=== PATIENT | male | born 1950 | race Hispanic/Latino ===

== ENCOUNTER 2017-10-25 12:02 | Observation (INO) | payer MEDICARE ==
[2017-10-25] MEDS ORDERED: MILK OF MAGNESIA PO PRN (12:37)
[2017-10-25] MEDS ORDERED: ZOFRAN IV PRN (12:37)
[2017-10-25] MEDS ORDERED: DULCOLAX PR PRN (12:37)
[2017-10-25] MEDS ORDERED: TYLENOL PO PRN (12:37)
--- NOTE | 2017-10-25 14:26 | History and Physical Report ---
History of Present Illness Date of examination: 10/25/17 Date of admission: 10/25/17 14:16 Chief complaint: Pain right lower extremity History of present illness: Patient is a 67-year-old man with recent onset of severe pain involving the right lower extremity. He was in his usual state of health until about a week or so ago when he began experiencing the abrupt onset of pain in the right lower extremity. He describes the foot is painful and numb from time to time. He was evaluated in an emergency room earlier this week. He was told to follow- up with vascular surgery. He was told at the time that he had "75%" circulation in his right lower extremity. Patient states that prior to this event he did have symptoms consistent with claudication involving the right lower extremity. Past History Past Medical History: CAD, diabetes, hypertension, hyperlipidemia Past Surgical History: Other (Three-vessel coronary stenting) Social history: , lives with family. denies: smoking, alcohol abuse Family history: diabetes Medications and Allergies Allergies Allergy/AdvReac Type Severity Reaction Status Date / Time No Known Allergies Allergy Verified 10/25/17 12:34 Active Meds: Active Medications Acetaminophen (Tylenol) 650 mg PO Q4H PRN PRN Reason: Pain MILD(1-3)/Fever >100.5/[place] Bisacodyl (Dulcolax) 10 mg [place] QDAY PRN PRN Reason: Constipation unrelieved by MOM Sodium Chloride (Nacl 0.9% 1000 Ml) 1,000 mls @ 42 mls/hr IV DIRECT JIN Magnesium Hydroxide (Milk Of Magnesia) 30 ml PO Q4H PRN PRN Reason: Constipation Ondansetron HCl (Zofran) 4 mg IV Q8H PRN PRN Reason: N/V unrelieved by Reglan Review of Systems All systems: negative - Constitutional no weight loss, no weight gain, no fever, no chills - Cardiovascular no chest pain, no shortness of breath, no leg edema Exam - General physical appearance Positive: well developed, well nourished, no distress, moderate pain - Eyes Positive: PERRL, normal occular movement - ENT Positive: normal pinna, normal nares, normal mucosa, no hearing loss, no congestion - Neck Positive: no masses, no bruits, trachea midline, no venous distension - Respiratory Positive: normal expansion, normal respiratory effort, clear to auscultation - Cardiovascular Rhythm: regular Heart Sounds: Present: S1 & S2. Absent: rub, click - Extremities Extremity abnormal: pulses diminished (Absent pedal pulses right foot) - Peripheral pulses posterial tibial Pulse Strength: 2+ (2+ on the left absent on the right) - Breasts Breasts: deferred - Abdomen Abdomen: Present: soft, bowel sounds normal. Absent: tender, distended - Genitourinary Male Genitourinary: deferred - Integumentary no rash, no growths, no abnormal pigmentation - Neurologic Neurologic: alert and oriented to time, place and person, motor strength and sensation are grossly intact - Musculoskeletal normal gait, normal posture Assessment and Plan - Patient Problems (1) Embolism and thrombosis of arteries of lower extremity Onset Date: ~10/16/17 Current Visit: Yes Status: Acute Plan to address problem: 1. Anticoagulation with heparin 2. Medical control of diabetes 3. Arterial intervention in the right lower extremity (2) Diabetes mellitus Current Visit: Yes Status: Chronic Qualifiers: Diabetes mellitus type: type 2 Diabetes mellitus complication status: with circulatory complication Diabetes mellitus complication detail: with peripheral angiopathy without gangrene Diabetes mellitus terminal worker insulin use : with intermediate use Qualified Code(s): E11.51 - Type 2 diabetes mellitus with diabetic peripheral angiopathy without gangrene; Z79.4 - group home (current ) use of insulin; Z79.4 - group home (current) use of insulin; Z79.4 - terminal computer operator (current) use of insulin; Z79.4 - terminal computer operator (current) use of insulin Plan to address problem: Consult hospitalist for management (3) Hypertension Current Visit: Yes Status: Chronic Qualifiers: Hypertension type: essential hypertension Qualified Code(s): I10 - Essential (primary) hypertension Plan to address problem: Consult hospitalist for management
[2017-10-25 15:02] LABS: Basophils % (Auto) 0.8 % (0.0-1.8); Hematocrit 45.3 % (35.5-45.6); Hemoglobin 15.6 gm/dl (11.8-15.2); Mean Corpuscular HGB Conc 34 % (32-34); Mean Corpuscular Hemoglobin 33 pg (28-32); Mean Corpuscular Volume 96 fl (84-94); Platelet Count 219 K/mm3 (140-440); Red Cell Distribution Width 13.2 % (13.2-15.2)
[2017-10-25 15:13] LABS: INR 1.01 (0.87-1.13)
[2017-10-25 15:14] LABS: Partial Thromboplastin Time 26.5 Sec. (24.2-36.6)
--- NOTE | 2017-10-25 15:18 | Event Note ---
67 year old male with new onset right calf and foot pain with short distance ambulation and decreased sensation to the right toes for 10 days with PVD of the right lower extremity. Nonpalpable right pedal pulses and palpable left pedal pulses. Discussed with patient plan for revascularization tomorrow. NPO after MN. Heparin drip.
[2017-10-25 15:28] LABS: Albumin 4.1 g/dL (3.9-5); Albumin/Globulin Ratio 1.4 %; Bilirubin,Total 0.5 mg/dL (0.1-1.2); Calcium 9.4 mg/dL (8.4-10.2); Chloride 93.7 mmol/L (98-107); Potassium 5.2 mmol/L (3.6-5.0)
[2017-10-25] MEDS ORDERED: NACL 0.9% 1000 ML 1,000 ML IV SCH (16:00)
--- NOTE | 2017-10-25 19:17 | History and Physical Report ---
History of Present Illness Date of admission: 10/25/17 14:16 Chief complaint: I need surgery History of present illness: 67 YO Male with CAD S/P Stent placement, HTN, DM, HLD, Metabolic Syndrome admitted for elective vascular procedure. consult placed by Dr. Saldana for medical management, and medication reconciliation. Pt seen and evaluated upon arrival. Pt denies fever, chills, CP, Palpitations, NVD, Syncope, leg swelling, calf pain, BRBPR, hemoptysis, productive cough, or recent ill contacts. Past History Past Medical History: CAD, diabetes, hypertension, hyperlipidemia Past Surgical History: Other (Three-vessel coronary stenting) Social history: , lives with family. denies: smoking, alcohol abuse Family history: diabetes Medications and Allergies Allergies Allergy/AdvReac Type Severity Reaction Status Date / Time No Known Allergies Allergy Verified 10/25/17 12:34 Home Medications Medication Instructions Recorded Confirmed Last Taken Type Amlodipine Besylate 10 mg PO DAILY 10/25/17 10/25/17 10/24/17 History Benazepril HCl [Lotensin] 40 mg PO DAILY 10/25/17 10/25/17 10/24/17 History Carvedilol [Coreg] 25 mg PO BID 10/25/17 10/25/17 10/24/17 History Clonidine HCl [Kapvay] 0.1 mg PO BID 10/25/17 10/25/17 10/25/17 History Clopidogrel Bisulfate [Plavix] 75 mg PO DAILY 10/25/17 10/25/17 10/24/17 History Cyclobenzaprine HCl [Flexeril 5 MG 5 mg PO PRN 10/25/17 10/25/17 10/24/17 History TAB] Gabapentin [Neurontin] 300 mg PO BID 10/25/17 10/25/17 10/25/17 History ISOSORBIDE MONOnitrate [Imdur ER] 60 mg PO QDAY 10/25/17 10/25/17 10/24/17 History Insulin Glargine,Hum.rec.anlog 30 unit SQ TID 10/25/17 10/25/17 10/24/17 History [Lantus] Levothyroxine Sodium 137 mcg PO QAM 10/25/17 10/25/17 10/24/17 History [Levothyroxine] Pravastatin 40 mg PO DAILY 10/25/17 10/25/17 10/24/17 History Spironolactone [Aldactone] 25 mg PO BID 10/25/17 10/25/17 10/24/17 History glipiZIDE [Glipizide] 5 mg PO BID 10/25/17 10/25/17 10/24/17 History Active Meds: Active Medications Acetaminophen (Tylenol) 650 mg PO Q4H PRN PRN Reason: Pain MILD(1-3)/Fever >100.5/[place] Bisacodyl (Dulcolax) 10 mg [place] QDAY PRN PRN Reason: Constipation unrelieved by MOM Sodium Chloride (Nacl 0.9% 1000 Ml) 1,000 mls @ 42 mls/hr IV DIRECT JIN Last Admin: 10/25/17 17:08 Dose: 42 mls/hr Heparin Sodium/Sodium Chloride (Heparin/ 0.45% Nacl-25,000 Unit/500 Ml) 25,000 unit in 500 mls @ 73.5 mls/hr IV TITR JIN; 15 UNITS/KG/HR PRN Reason: Protocol Magnesium Hydroxide (Milk Of Magnesia) 30 ml PO Q4H PRN PRN Reason: Constipation Ondansetron HCl (Zofran) 4 mg IV Q8H PRN PRN Reason: N/V unrelieved by Reglan Review of Systems Constitutional: no weight loss, no weight gain, no fever, no chills Ears, nose, mouth and throat: no ear pain, no ear discharge, no tinnitis, no decreased hearing, no nose pain Cardiovascular: no chest pain, no orthopnea, no palpitations, no rapid/ irregular heart beat, no edema Gastrointestinal: no nausea, no vomiting, no diarrhea, no constipation Genitourinary Male: no hematuria, no flank pain, no discharge, no urinary frequency, no urinary hesitancy Rectal: no pain, no incontinence, no bleeding Musculoskeletal: no neck stiffness, no neck pain, no shooting arm pain, no arm numbness/tingling, no low back pain Integumentary: no rash, no pruritis, no redness, no sores, no wounds Neurological: no head injury, no transient paralysis, no paralysis, no weakness , no parathesias Psychiatric: no anxiety, no memory loss, no change in sleep habits, no sleep disturbances, no insomnia Endocrine: no cold intolerance, no heat intolerance, no polyphagia, no excessive thirst Hematologic/Lymphatic: no easy bruising, no easy bleeding Allergic/Immunologic: no urticaria, no allergic rhinitis, no wheezing Exam - Constitutional Vitals: Temp Pulse Resp BP Pulse Ox 98.0 F 64 20 145/77 97 10/25/17 14:43 10/25/17 14:43 10/25/17 14:43 10/25/17 14:43 10/25/17 14:43 General appearance: Present: mild distress, obese - EENT Eyes: Present: PERRL ENT: hearing intact, clear oral mucosa - Neck Neck: Present: supple, normal ROM - Respiratory Respiratory effort: normal Respiratory: bilateral: CTA - Cardiovascular Heart Sounds: Present: S1 & S2. Absent: rub, click - Extremities Extremities: pulses symmetrical, No edema Peripheral Pulses: abnormal (diminished) - Abdominal General gastrointestinal: Present: soft, non-tender, non-distended, normal bowel sounds Male genitourinary: Present: normal - Integumentary Integumentary: Present: clear, warm, dry - Musculoskeletal Musculoskeletal: gait normal, strength equal bilaterally - Psychiatric Psychiatric: appropriate mood/affect, intact judgment & insight - Neurologic Neurologic: CNII-XII intact, moves all extremities Results - Labs CBC & Chem 7: 10/25/17 14:49 10/25/17 14:49 Labs: Abnormal lab results 10/25/17 10/25/17 10/25/17 Range/Units 14:49 14:49 17:26 Hgb 15.6 H (11.8-15.2) gm/dl MCV 96 H (84-94) fl MCH 33 H (28-32) pg Seg Neutrophils % 71.0 H (40.0-70.0) % Sodium 133 L (137-145) mmol/L Potassium 5.2 H (3.6-5.0) mmol/L Chloride 93.7 L (98-107) mmol/L BUN 21 H (9-20) mg/dL Glucose 371 H (75-100) mg/dL POC Glucose 291 H (70-105) Assessment and Plan - Patient Problems (1) Diabetes mellitus Current Visit: Yes Status: Chronic Qualifiers: Diabetes mellitus type: type 2 Diabetes mellitus complication status: with circulatory complication Diabetes mellitus complication detail: with peripheral angiopathy without gangrene Diabetes mellitus fci insulin use : with long term care pharmacist use Qualified Code(s): E11.51 - Type 2 diabetes mellitus with diabetic peripheral angiopathy without gangrene; Z79.4 - detention (current ) use of insulin; Z79.4 - detention (current) use of insulin; Z79.4 - detention (current) use of insulin; Z79.4 - detention (current) use of insulin Plan to address problem: ADA diet, Sliding scale insulin, Accu checks q 6hrs, (2) Hypertension Current Visit: Yes Status: Chronic Qualifiers: Hypertension type: essential hypertension Qualified Code(s): I10 - Essential (primary) hypertension Plan to address problem: Monitor bp q shift, resume home medication, IV hydralazine Prn for systolic above 165.
[2017-10-25] MEDS ORDERED: D50W (25GM) Syringe IV PRN (19:20)
[2017-10-25] MEDS ORDERED: HEPARIN/ 0.45% NACL-25,000 UNIT/500 ML 25,000 UNIT/500 ML BAG IV SCH (20:00)
[2017-10-25] MEDS ORDERED: NON-FORMULARY (Clonidine Hcl [Kapvay] 0.1 MG) PO SCH (22:00)
[2017-10-25] MEDS: COREG PO SCH (23:05)
[2017-10-25] MEDS: CATAPRES PO SCH (23:05)
[2017-10-25] MEDS: ALDACTONE PO SCH (23:05)
[2017-10-25] MEDS: PRAVACHOL PO SCH (23:06)
[2017-10-25] MEDS: NEURONTIN PO SCH (23:06)
[2017-10-25] MEDS: NOVOLOG SUB-Q SCH (23:09)
[2017-10-26] MEDS: SYNTHROID PO SCH ×2 (05:13→05:48)
[2017-10-26] MEDS: NOVOLOG SUB-Q SCH ×4 (05:49→23:35)
--- NOTE | 2017-10-26 08:08 | Progress Note ---
<ELÍASCOURT GODFREY - Last Filed: 10/28/17 00:35> Assessment and Plan Assessment and plan: Patient is a 67 years old Male with CAD S/P Stent placement, HTN, DM, HLD, Metabolic Syndrome admitted for elective vascular procedure. consult placed by Dr. Saldana for medical management, and medication reconciliation. Diabetes mellitus Accu-Chek before meals and at bedtime Sliding scale insulin/NovoLog ADA carbohydrate consistent diet Mild Hyponatrimia IV fluid that will correct it Closely monitor electrolytes Hypertension Continue home antihypertensive medications Closely monitor blood pressure CAD Continue on Aspirin and statins Hyperlipidemia Continue antilipid agents DVT/prophylaxis Heparin History Interval history: Patient denies having pain at present time. Labs and nursing notes reviewed. Hospitalist Physical - Constitutional Vitals: Temp Pulse Resp BP Pulse Ox 97.8 F 55 L 20 149/77 97 10/26/17 04:48 10/26/17 04:48 10/26/17 04:48 10/26/17 04:48 10/26/17 04:48 General appearance: Present: mild distress, obese - EENT Eyes: Present: PERRL ENT: hearing intact - Neck Neck: Present: supple - Respiratory Respiratory effort: normal Respiratory: bilateral: CTA - Cardiovascular Rhythm: regular Heart Sounds: Present: S1 & S2 - Abdominal General gastrointestinal: soft, non-tender - Integumentary Integumentary: Present: clear, warm, dry - Psychiatric Psychiatric: appropriate mood/affect - Neurologic Neurologic: CNII-XII intact - Allied Health Allied health notes reviewed: nursing Results - Labs CBC & Chem 7: 10/27/17 04:00 10/26/17 08:04 Labs: Laboratory Last Values WBC 8.0 K/mm3 (4.5-11.0) 10/25/17 14:49 RBC 4.70 M/mm3 (3.65-5.03) 10/25/17 14:49 Hgb 15.6 gm/dl (11.8-15.2) H 10/25/17 14:49 Hct 45.3 % (35.5-45.6) 10/25/17 14:49 MCV 96 fl (84-94) H 10/25/17 14:49 MCH 33 pg (28-32) H 10/25/17 14:49 MCHC 34 % (32-34) 10/25/17 14:49 RDW 13.2 % (13.2-15.2) 10/25/17 14:49 Plt Count 219 K/mm3 (140-440) 10/25/17 14:49 Lymph % (Auto) 18.0 % (13.4-35.0) 10/25/17 14:49 [place] % (Auto) 7.2 % (0.0-7.3) 10/25/17 14:49 Eos % (Auto) 3.0 % (0.0-4.3) 10/25/17 14:49 Baso % (Auto) 0.8 % (0.0-1.8) 10/25/17 14:49 Lymph # 1.4 K/mm3 (1.2-5.4) 10/25/17 14:49 [place] # 0.6 K/mm3 (0.0-0.8) 10/25/17 14:49 Eos # 0.2 K/mm3 (0.0-0.4) 10/25/17 14:49 Baso # 0.1 K/mm3 (0.0-0.1) 10/25/17 14:49 Seg Neutrophils % 71.0 % (40.0-70.0) H 10/25/17 14:49 Seg Neutrophils # 5.7 K/mm3 (1.8-7.7) 10/25/17 14:49 PT 13.8 Sec. (12.2-14.9) 10/25/17 14:49 INR 1.01 (0.87-1.13) 10/25/17 14:49 APTT 26.5 Sec. (24.2-36.6) 10/25/17 14:49 Heparin Anti-Xa Level 0.21 U.I./ml (0.3-0.7) L 10/26/17 04:42 Sodium 133 mmol/L (137-145) L 10/25/17 14:49 Potassium 5.2 mmol/L (3.6-5.0) H 10/25/17 14:49 Chloride 93.7 mmol/L (98-107) L 10/25/17 14:49 Carbon Dioxide 27 mmol/L (22-30) 10/25/17 14:49 Anion Gap 18 mmol/L 10/25/17 14:49 BUN 21 mg/dL (9-20) H 10/25/17 14:49 Creatinine 1.3 mg/dL (0.8-1.5) 10/25/17 14:49 Estimated GFR 55 ml/min 10/25/17 14:49 BUN/Creatinine Ratio 16 % 10/25/17 14:49 Glucose 371 mg/dL (75-100) H 10/25/17 14:49 POC Glucose 245 (70-105) H 10/26/17 06:20 Calcium 9.4 mg/dL (8.4-10.2) 10/25/17 14:49 Total Bilirubin 0.50 mg/dL (0.1-1.2) 10/25/17 14:49 AST 14 units/L (5-40) 10/25/17 14:49 ALT 18 units/L (7-56) 10/25/17 14:49 Alkaline Phosphatase 55 units/L (35-129) 10/25/17 14:49 Total Protein 7.0 g/dL (6.3-8.2) 10/25/17 14:49 Albumin 4.1 g/dL (3.9-5) 10/25/17 14:49 Albumin/Globulin Ratio 1.4 % 10/25/17 14:49 <ANABEL BRIDGES R - Last Filed: 10/28/17 09:40> Assessment and Plan Assessment and plan: I saw and evaluated the patient on 10/26/17. I agree with the findings and the plan of care as documented in the Nurse Practitioner's~note. Hospitalist Physical - Constitutional Vitals: Temp Pulse Resp BP Pulse Ox 97.5 F L 60 20 125/75 96 10/27/17 09:23 10/27/17 09:29 10/27/17 09:23 10/27/17 09:29 10/27/17 09:23 Results - Labs CBC & Chem 7: 10/27/17 04:00 10/26/17 08:04 Labs: Laboratory Last Values WBC 8.0 K/mm3 (4.5-11.0) 10/25/17 14:49 RBC 4.70 M/mm3 (3.65-5.03) 10/25/17 14:49 Hgb 15.9 gm/dl (11.8-15.2) H 10/27/17 04:00 Hct 45.5 % (35.5-45.6) 10/27/17 04:00 MCV 96 fl (84-94) H 10/25/17 14:49 MCH 33 pg (28-32) H 10/25/17 14:49 MCHC 34 % (32-34) 10/25/17 14:49 RDW 13.2 % (13.2-15.2) 10/25/17 14:49 Plt Count 207 K/mm3 (140-440) 10/27/17 04:00 Lymph % (Auto) 18.0 % (13.4-35.0) 10/25/17 14:49 [place] % (Auto) 7.2 % (0.0-7.3) 10/25/17 14:49 Eos % (Auto) 3.0 % (0.0-4.3) 10/25/17 14:49 Baso % (Auto) 0.8 % (0.0-1.8) 10/25/17 14:49 Lymph # 1.4 K/mm3 (1.2-5.4) 10/25/17 14:49 [place] # 0.6 K/mm3 (0.0-0.8) 10/25/17 14:49 Eos # 0.2 K/mm3 (0.0-0.4) 10/25/17 14:49 Baso # 0.1 K/mm3 (0.0-0.1) 10/25/17 14:49 Seg Neutrophils % 71.0 % (40.0-70.0) H 10/25/17 14:49 Seg Neutrophils # 5.7 K/mm3 (1.8-7.7) 10/25/17 14:49 PT 13.8 Sec. (12.2-14.9) 10/25/17 14:49 INR 1.01 (0.87-1.13) 10/25/17 14:49 APTT 26.5 Sec. (24.2-36.6) 10/25/17 14:49 Activated Clotting Time 158 (74-137) H 10/26/17 16:19 Heparin Anti-Xa Level < 0.10 U.I./ml (0.3-0.7) L 10/27/17 10:25 Sodium 132 mmol/L (137-145) L 10/26/17 08:04 Potassium 4.3 mmol/L (3.6-5.0) 10/26/17 08:04 Chloride 92.6 mmol/L (98-107) L 10/26/17 08:04 Carbon Dioxide 25 mmol/L (22-30) 10/26/17 08:04 Anion Gap 19 mmol/L 10/26/17 08:04 BUN 16 mg/dL (9-20) 10/26/17 08:04 Creatinine 1.1 mg/dL (0.8-1.5) 10/26/17 08:04 Estimated GFR > 60 ml/min 10/26/17 08:04 BUN/Creatinine Ratio 15 % 10/26/17 08:04 Glucose 260 mg/dL (75-100) H 10/26/17 08:04 POC Glucose 287 (70-105) H 10/27/17 11:47 Calcium 9.2 mg/dL (8.4-10.2) 10/26/17 08:04 Total Bilirubin 0.50 mg/dL (0.1-1.2) 10/25/17 14:49 AST 14 units/L (5-40) 10/25/17 14:49 ALT 18 units/L (7-56) 10/25/17 14:49 Alkaline Phosphatase 55 units/L (35-129) 10/25/17 14:49 Total Protein 7.0 g/dL (6.3-8.2) 10/25/17 14:49 Albumin 4.1 g/dL (3.9-5) 10/25/17 14:49 Albumin/Globulin Ratio 1.4 % 10/25/17 14:49
[2017-10-26 09:04] LABS: Anion Gap 19 mmol/L; BUN/Creatinine Ratio 15; Blood Urea Nitrogen 16 mg/dL (9-20); Calcium 9.2 mg/dL (8.4-10.2); Carbon Dioxide 25 mmol/L (22-30); Chloride 92.6 mmol/L (98-107); Glucose 260 mg/dL (75-100); Potassium 4.3 mmol/L (3.6-5.0); Sodium 132 mmol/L (137-145)
--- NOTE | 2017-10-26 09:56 | Consultation ---
History of Present Illness Consult date: 10/26/17 Consult reason: known to you History of present illness: This is a 67yr old male a known history of coronary artery disease but has been lost to outpatient cardiac follow up. He also has a history of Hypertension and Diabetes managed by his primary care physician. Patient reports complaints of right lower extremity pain with decreased sensation x 1wk. Patient was seen as an outpatient by [facility] and was admitted for further evaluation. Patient denies chest pain, shortness of breath and lower extremity edema. He denies palpitations. Past History Past Medical History: CAD, diabetes, hypertension, hyperlipidemia Past Surgical History: Other (Three-vessel coronary stenting) Social history: , lives with family. denies: smoking, alcohol abuse Family history: diabetes Medications and Allergies Allergies Allergy/AdvReac Type Severity Reaction Status Date / Time No Known Allergies Allergy Verified 10/25/17 12:34 Home Medications Medication Instructions Recorded Confirmed Last Taken Type Amlodipine Besylate 10 mg PO DAILY 10/25/17 10/25/17 10/24/17 History Benazepril HCl [Lotensin] 40 mg PO DAILY 10/25/17 10/25/17 10/24/17 History Carvedilol [Coreg] 25 mg PO BID 10/25/17 10/25/17 10/24/17 History Clonidine HCl [Kapvay] 0.1 mg PO BID 10/25/17 10/25/17 10/25/17 History Clopidogrel Bisulfate [Plavix] 75 mg PO DAILY 10/25/17 10/25/17 10/24/17 History Cyclobenzaprine HCl [Flexeril 5 MG 5 mg PO PRN 10/25/17 10/25/17 10/24/17 History TAB] Gabapentin [Neurontin] 300 mg PO BID 10/25/17 10/25/17 10/25/17 History ISOSORBIDE MONOnitrate [Imdur ER] 60 mg PO QDAY 10/25/17 10/25/17 10/24/17 History Insulin Glargine,Hum.rec.anlog 30 unit SQ TID 10/25/17 10/25/17 10/24/17 History [Lantus] Levothyroxine Sodium 137 mcg PO QAM 10/25/17 10/25/17 10/24/17 History [Levothyroxine] Pravastatin 40 mg PO DAILY 10/25/17 10/25/17 10/24/17 History Spironolactone [Aldactone] 25 mg PO BID 10/25/17 10/25/17 10/24/17 History glipiZIDE [Glipizide] 5 mg PO BID 10/25/17 10/25/17 10/24/17 History Active Meds: Active Medications Acetaminophen (Tylenol) 650 mg PO Q4H PRN PRN Reason: Pain MILD(1-3)/Fever >100.5/[place] Last Admin: 10/25/17 23:06 Dose: 650 mg Amlodipine Besylate (Norvasc) 10 mg PO DAILY [facility] Bisacodyl (Dulcolax) 10 mg [place] QDAY PRN PRN Reason: Constipation unrelieved by MOM Carvedilol (Coreg) 25 mg PO BID [facility] Last Admin: 10/25/17 23:05 Dose: 25 mg Clonidine HCl (Catapres) 0.1 mg PO BID [facility] Last Admin: 10/25/17 23:05 Dose: 0.1 mg Clopidogrel Bisulfate (Plavix) 75 mg PO DAILY [facility] Dextrose (D50w (25gm) Syringe) 50 ml IV PRN PRN PRN Reason: Hypoglycemia Gabapentin (Neurontin) 300 mg PO BID [facility] Last Admin: 10/25/17 23:06 Dose: 300 mg Sodium Chloride (Nacl 0.9% 1000 Ml) 1,000 mls @ 50 mls/hr IV DIRECT JIN Last Admin: 10/25/17 17:08 Dose: 42 mls/hr Heparin Sodium/Sodium Chloride (Heparin/ 0.45% Nacl-25,000 Unit/500 Ml) 25,000 unit in 500 mls @ 30 mls/hr IV TITR JIN; 1,500 UNITS/HR PRN Reason: Protocol Last Titration: 10/26/17 06:28 Dose: 1,600 units/hr, 32 mls/hr Insulin Aspart (Novolog) 0 units SUB-Q Q6HR JIN PRN Reason: Protocol Last Admin: 10/26/17 05:49 Dose: Not Given Isosorbide Mononitrate (Imdur) 60 mg PO QDAY [facility] Levothyroxine Sodium (Synthroid) 112 mcg PO DAILY@0600 [facility] Last Admin: 10/26/17 05:13 Dose: Not Given Levothyroxine Sodium (Synthroid) 25 mcg PO DAILY@0600 [facility] Last Admin: 10/26/17 05:48 Dose: Not Given Lisinopril (Zestril) 40 mg PO QDAY [facility] Magnesium Hydroxide (Milk Of Magnesia) 30 ml PO Q4H PRN PRN Reason: Constipation Ondansetron HCl (Zofran) 4 mg IV Q8H PRN PRN Reason: N/V unrelieved by Reglan Pravastatin Sodium (Pravachol) 40 mg PO QHS [facility] Last Admin: 10/25/17 23:06 Dose: 40 mg Spironolactone (Aldactone) 25 mg PO BID [facility] Last Admin: 10/25/17 23:05 Dose: 25 mg Physical Examination Vital Signs Temp Pulse Resp BP Pulse Ox 98.0 F 64 20 145/77 97 10/25/17 14:43 10/25/17 14:43 10/25/17 14:43 10/25/17 14:43 10/25/17 14:43 General appearance: no acute distress HEENT: Positive: PERRL Cardiac: Positive: Reg Rate and Rhythm Lungs: Positive: Decreased Breath Sounds Neuro: Positive: Grossly Intact Results 10/25/17 14:49 10/26/17 08:04 Cardiac Enzymes 10/25/17 Range/Units 14:49 AST 14 (5-40) units/L Coagulation 10/25/17 Range/Units 14:49 PT 13.8 (12.2-14.9) Sec. INR 1.01 (0.87-1.13) APTT 26.5 (24.2-36.6) Sec. CBC 10/25/17 Range/Units 14:49 WBC 8.0 (4.5-11.0) K/mm3 RBC 4.70 (3.65-5.03) M/mm3 Hgb 15.6 H (11.8-15.2) gm/dl Hct 45.3 (35.5-45.6) % Plt Count 219 (140-440) K/mm3 Lymph # 1.4 (1.2-5.4) K/mm3 [place] # 0.6 (0.0-0.8) K/mm3 Eos # 0.2 (0.0-0.4) K/mm3 Baso # 0.1 (0.0-0.1) K/mm3 Comprehensive Metabolic Panel 10/25/17 10/26/17 Range/Units 14:49 08:04 Sodium 133 L 132 L (137-145) mmol/L Potassium 5.2 H 4.3 (3.6-5.0) mmol/L Chloride 93.7 L 92.6 L (98-107) mmol/L Carbon Dioxide 27 25 (22-30) mmol/L BUN 21 H 16 (9-20) mg/dL Creatinine 1.3 1.1 (0.8-1.5) mg/dL Glucose 371 H 260 H (75-100) mg/dL Calcium 9.4 9.2 (8.4-10.2) mg/dL AST 14 (5-40) units/L ALT 18 (7-56) units/L Alkaline Phosphatase 55 (35-129) units/L Total Protein 7.0 (6.3-8.2) g/dL Albumin 4.1 (3.9-5) g/dL Assessment and Plan RLE pain/decrease sensation Hypertension Diabetes Hx of CAD Obtain 12 lead ECG for review.
[2017-10-26] MEDS: ALDACTONE PO SCH ×2 (10:00→22:00)
[2017-10-26] MEDS: NEURONTIN PO SCH ×2 (10:00→22:00)
[2017-10-26] MEDS ORDERED: NON-FORMULARY (Levothyroxine Sodium [Levothyroxine] 137 MCG) PO SCH (10:00)
[2017-10-26] MEDS: IMDUR PO SCH (10:00)
[2017-10-26] MEDS ORDERED: NON-FORMULARY (Benazepril Hcl [Lotensin] 40 MG) PO SCH (10:00)
[2017-10-26] MEDS: CATAPRES PO SCH ×2 (10:00→22:00)
[2017-10-26] MEDS: ZESTRIL PO SCH (10:00)
[2017-10-26] MEDS ORDERED: NON-FORMULARY (Amlodipine Besylate 10 MG) PO SCH (10:00)
[2017-10-26] MEDS ORDERED: NON-FORMULARY (Pravastatin 40 MG) PO SCH (10:00)
[2017-10-26] MEDS: COREG PO SCH ×2 (10:00→22:01)
[2017-10-26] MEDS ORDERED: NACL 0.9% 500 ML 500 ML IV SCH (13:00)
[2017-10-26] MEDS ORDERED: HEPARIN/NS 5000 UNIT/500ML(CATH LAB) 1,000 ML IR ONE (13:10)
[2017-10-26] MEDS ORDERED: HEPARIN 10,000 UNITS/10 ML ONE (13:10)
[2017-10-26] MEDS ORDERED: XYLOCAINE 2% INFILTRATI ONE (13:11)
[2017-10-26] MEDS: VERSED ONE ×2 (13:30→13:40)
[2017-10-26] MEDS: SUBLIMAZE ONE ×4 (13:30→14:30)
[2017-10-26] MEDS ORDERED: VERSED ONE (13:59)
[2017-10-26] MEDS ORDERED: SUBLIMAZE ONE (14:51)
--- NOTE | 2017-10-26 15:11 | Post Operative Note ---
Date of procedure: 10/26/17 Pre-op diagnosis: Threatened right lower extremity Post-op diagnosis: same Findings: ACT 197 - will leave sheath in until ACT less than 170. Will need to be supine for 8 hrs. Procedure: 1. Ultrasound guided access of the left common femoral artery 2. Angiography of the left lower extremity 3. Selection of the abdominal aorta with aortography 4. Selection of the right external iliac artery with angiography of the right lower extremity 5. Selection of the right popliteal artery with angiography 6. Fluoroscopic guided placement of a 6 mm spider wire in the left below knee popliteal artery 7. Angioplasty of the right distal superficial femoral artery with a 2.5 mm angioplasty balloon 8. Atherectomy of the right distal superficial femoral artery with a LX [place] One 9. Angioplasty of the right distal superficial femoral artery with a 5 mm angioplasty balloon 10. Angioplasty of the right distal superficial femoral artery with a 6 mm x 100 mm LUTONIX drug coated balloon (x 2) 11. Stenting of the right distal superficial femoral artery with 7 mm x 60 mm TIGRIS Anesthesia: local (w/ conscious sedation) Surgeon: VLADIMIR NOBLE Estimated blood loss: minimal Condition: stable Disposition: floor
--- NOTE | 2017-10-26 15:13 | Operative Report ---
Operative Report Operative Report: EXAM: 1. Ultrasound guided access of the left common femoral artery 2. Angiography of the left lower extremity 3. Selection of the abdominal aorta with aortography 4. Selection of the right external iliac artery with angiography of the right lower extremity 5. Selection of the right popliteal artery with angiography 6. Fluoroscopic guided placement of a 6 mm spider wire in the left below knee popliteal artery 7. Angioplasty of the right distal superficial femoral artery with a 2.5 mm angioplasty balloon 8. Atherectomy of the right distal superficial femoral artery with a LX Hawk One 9. Angioplasty of the right distal superficial femoral artery with a 5 mm angioplasty balloon 10. Angioplasty of the right distal superficial femoral artery with a 6 mm x 100 mm LUTONIX drug coated balloon (x 2) 11. Stenting of the right distal superficial femoral artery with 7 mm x 60 mm TIGRIS DATE: 10/26/17 ARMAMENT INSTALLER: VLADIMIR NOBLE MD INDICATION: Threatened right lower extremity with new onset rest pain and numbness. MEDICATIONS: Please see nursing report for full details. DEVICES: 6 mm spider wire 2.5 mm angioplasty balloon 5 mm angioplasty balloon LX Hawk One 6 mm x 100 mm LUTONIX DCB (x 2 ; PASS THROUGH CODE REQUIRED) 7 mm x 60 mm Tigris stent CONTRAST: Please see [facility] [employer] report above PROCEDURE: The risks, benefits, and alternatives were discussed with the patient; written informed consent was obtained. Patient was prepped and draped in a sterile fashion. The groins were prepped and draped in a sterile fashion. The patient was obese and had a large amount of soft tissue above the groin. Under direct ultrasound guidance, left common femoral artery was accessed with a 21-gauge micropuncture needle. The needle was hubbed. 0.018 inch wire was passed into the artery. Needle was exchanged for the inner portion of the transitional dilator. Digital subtraction angiography was performed confirming appropriate puncture, above the bifurcation of below the inferior epigastric artery. V18 wire was passed through the inner transitional dilator and the transitional dilator was reassembled advanced over the wire. Wire was removed and exchanged for a Glidewire advantage. Sheath was exchanged for a 6 Cuban sheath. Digital subtraction angiography was performed demonstrating an appropriate puncture, above the bifurcation of below the inferior epigastric artery. The left superficial femoral artery had some mild narrowing at the distal portion of the vessel. The mid and proximal portion of the vessel was patent. The left profunda femoral artery was patent. The left superficial femoral artery had some mild disease within the proximal portion of the vessel. Left external iliac artery was patent. Catheter is advanced over the wire into the abdominal aorta. Digital subtraction angiography was performed demonstrating patency of the infrarenal abdominal aorta, bilateral common iliac arteries, lateral internal iliac arteries, and bilateral external iliac arteries. Catheter was used to select the right external iliac artery and digital subtraction angiography demonstrated patency of the right common femoral artery , profunda femoral artery, and proximal superficial femoral artery. Catheter was exchanged for an angled catheter and used to select the right superficial femoral artery. Digital subtraction angiography demonstrating patency of the proximal and mid superficial femoral artery. The distal superficial femoral artery was occluded with distal reconstitution at the superficial femoral artery immediately above the popliteal artery. The popliteal artery was patent. The anterior tibial artery had multifocal 90% narrowings throughout the mid, proximal, and distal portions of the vessel. The posterior tibial artery was occluded throughout its course. The tibioperoneal trunk had two 90% tandem lesions. The peroneal artery was patent throughout the course and provided runoff into the foot through the anterior and posterior communicating arteries. After evaluating the imaging, I determined the patient required intervention. The patient was heparinized. Sheath was exchanged for a 7 Cuban 65 cm pedicle destination positioned in the right superficial femoral artery. Using a wire and catheter, the right superficial femoral artery occlusion was crossed. Digital subtraction angiography confirmed intraluminal positioning. Spider wire was deployed in the distal popliteal artery. 2.5 mm angioplasty balloon used for angioplasty of the distal superficial femoral artery. Hawk one atherectomy was performed of the distal superficial femoral artery with multiple passes performed. 5 mm angioplasty balloon is used to predilate the distal superficial femoral artery lesion. 6 mm drug coated balloon's were used to perform angioplasty of the distal superficial femoral artery. Digital subtraction angiography demonstrated resolution of most of the narrowing, but a residual 70% narrowing in the distal most portion of the superficial femoral artery lesion. 7 mm x 60 mm Tigris stent was deployed across the residual lesion. This was post dilated with a 6 mm angioplasty balloon. Digital subtraction angiography demonstrated resolution of the narrowing. There is now no residual narrowing within the superficial femoral artery lesion. There is prompt flow into the popliteal and infrapopliteal vasculature. No evidence of embolization in the distal popliteal vasculature. Minimal debris in the spider wire. Spider wire was then removed. Digital subtraction angiography demonstrated no embolization. Wire, catheter, and sheath were retracted to the left external iliac artery. Sheath was exchanged for a 7 Cuban standard 10 cm sheath. ACT was drawn which demonstrated the ACT was 197. Sheath was sutured in place and obturator was placed in the sheath prevent occlusion of the sheath. ACT was redrawn and was found to be less than 160. Sheath was removed and pressure was held until hemostasis was achieved. Patient tolerated the procedure well. No immediate postprocedural complication. FINDINGS: See procedure note above. IMPRESSION: Successful atherectomy, angioplasty, and stenting of the right distal superficial femoral artery occlusion.
[2017-10-26] MEDS ORDERED: BABY ASPIRIN ONE (15:22)
[2017-10-26] MEDS ORDERED: ALUM-MAG HYDROX-SIMETH 200-200-20MG/5ML ONE (15:23)
[2017-10-26] MEDS: PLAVIX ONE (15:30)
[2017-10-26] MEDS ORDERED: PERCOCET 5/325 ONE ×2 (15:31→15:37)
[2017-10-26] MEDS ORDERED: PERCOCET 5/325 PO PRN (15:39)
[2017-10-26] MEDS ORDERED: DILAUDID IV PRN ×2 (15:40→16:22)
[2017-10-26] MEDS ORDERED: DILAUDID ONE (16:09)
[2017-10-26] MEDS ORDERED: ZOFRAN ONE (16:21)
[2017-10-26] MEDS ORDERED: APRESOLINE ONE (16:29)
[2017-10-26] MEDS: PLAVIX PO SCH (17:00)
[2017-10-26] MEDS ORDERED: APRESOLINE IV ONE (17:00)
[2017-10-26] MEDS ORDERED: NOVOLOG SUB-Q ONE (17:29)
[2017-10-26] MEDS: NORVASC PO SCH (17:46)
[2017-10-26] MEDS: PRAVACHOL PO SCH (22:01)
[2017-10-27 04:22] LABS: Hematocrit 45.5 % (35.5-45.6); Hemoglobin 15.9 gm/dl (11.8-15.2)
[2017-10-27] MEDS: SYNTHROID PO SCH ×2 (06:12)
[2017-10-27] MEDS: NOVOLOG SUB-Q SCH ×2 (08:28→11:53)
--- NOTE | 2017-10-27 08:55 | Progress Note ---
Assessment and Plan RLE pain/decrease sensation s/p right SFA atherectomy, angioplasty and stenting Hypertension Diabetes Hx of CAD Recommendations: Cardiac cruz stable No new recommendations Subjective Date of service: 10/27/17 Principal diagnosis: Perioperative cardiac management Interval history: Patient is doing well He denies chest pain or shortness of breath Objective Vital Signs Temp Pulse Resp BP BP Pulse Ox 10/27/17 07:59 98 10/27/17 07:27 98.6 F 63 18 120/62 94 10/27/17 04:02 97.7 F 77 18 145/80 95 10/26/17 22:35 98.9 F 81 18 150/83 97 10/26/17 21:39 98.2 F 90 18 153/83 96 10/26/17 20:00 98.7 F 88 20 149/81 97 10/26/17 19:05 98.4 F 73 18 163/82 96 10/26/17 18:02 97.7 F 72 18 150/69 98 10/26/17 17:46 73 163/83 10/26/17 17:43 70 18 163/83 97 10/26/17 17:20 73 20 166/79 97 10/26/17 17:08 66 18 139/91 97 10/26/17 16:54 68 16 170/82 98 10/26/17 16:48 70 18 161/87 96 10/26/17 16:44 18 10/26/17 16:43 66 16 160/77 97 10/26/17 16:40 67 160/77 10/26/17 16:38 68 15 169/85 95 10/26/17 16:34 66 14 205/98 95 10/26/17 16:29 69 14 194/94 96 10/26/17 16:15 61 13 184/80 96 10/26/17 16:14 18 10/26/17 16:00 62 14 180/89 95 10/26/17 15:45 61 12 182/94 97 10/26/17 15:30 97.7 F 61 16 179/86 95 - Physical Examination HEENT: Positive: PERRL Neck: Positive: neck supple Cardiac: Positive: Reg Rate and Rhythm Lungs: Positive: Normal Exam Neuro: Positive: Grossly Intact - Labs and Meds CBC 10/27/17 Range/Units 04:00 Hgb 15.9 H (11.8-15.2) gm/dl Hct 45.5 (35.5-45.6) % Plt Count 207 (140-440) K/mm3 Comprehensive Metabolic Panel 10/26/17 Range/Units 08:04 Sodium 132 L (137-145) mmol/L Potassium 4.3 (3.6-5.0) mmol/L Chloride 92.6 L (98-107) mmol/L Carbon Dioxide 25 (22-30) mmol/L BUN 16 (9-20) mg/dL Creatinine 1.1 (0.8-1.5) mg/dL Glucose 260 H (75-100) mg/dL Calcium 9.2 (8.4-10.2) mg/dL
[2017-10-27 09:26] VITALS: BP 125/75
[2017-10-27] MEDS: PLAVIX PO SCH (09:27)
[2017-10-27] MEDS: IMDUR PO SCH (09:28)
[2017-10-27] MEDS: CATAPRES PO SCH (09:28)
[2017-10-27] MEDS: NEURONTIN PO SCH (09:28)
[2017-10-27] MEDS: COREG PO SCH (09:28)
[2017-10-27] MEDS: ZESTRIL PO SCH (09:29)
[2017-10-27] MEDS: ALDACTONE PO SCH (09:29)
[2017-10-27] MEDS: NORVASC PO SCH (09:29)
--- NOTE | 2017-10-27 09:47 | Discharge Summary ---
Providers - Providers Date of Admission: 10/25/17 14:16 Date of discharge: 10/27/17 Attending physician: YARI JAFFE 10/25/17 12:41 Consult to Dietitian/Nutrition [CONS] Routine Physician Instructions: Reason For Exam: Reason for Consult: Diet education 10/25/17 15:26 Consult to Physician [CONS] Routine Consulting Provider: ALEXANDRE GONZALEZ Reason For Exam: medical management - dm management Place consult to:: Notified:: 10/25/17 15:27 Consult to Physician [CONS] Routine Consulting Provider: CHAD BECERRIL Reason For Exam: [facility]ab[facility] heart - patient known to group Place consult to:: Notified:: Phone number called:: [phone] Was contact made?: Yes If yes, spoke with:: ANAYELI Time called:: 16:05 Comment:: JAY Primary care physician: BILLIE LEON Hospitalization Reason for admission: PAD Condition: Good Procedures: Operative Report: EXAM: 1. Ultrasound guided access of the left common femoral artery 2. Angiography of the left lower extremity 3. Selection of the abdominal aorta with aortography 4. Selection of the right external iliac artery with angiography of the right lower extremity 5. Selection of the right popliteal artery with angiography 6. Fluoroscopic guided placement of a 6 mm spider wire in the left below knee popliteal artery 7. Angioplasty of the right distal superficial femoral artery with a 2.5 mm angioplasty balloon 8. Atherectomy of the right distal superficial femoral artery with a LX Hawk One 9. Angioplasty of the right distal superficial femoral artery with a 5 mm angioplasty balloon 10. Angioplasty of the right distal superficial femoral artery with a 6 mm x 100 mm LUTONIX drug coated balloon (x 2) 11. Stenting of the right distal superficial femoral artery with 7 mm x 60 mm TIGRIS DATE: 10/26/17 SALES STOCK ASSOCIATE: VLADIMIR NOBLE MD INDICATION: Threatened right lower extremity with new onset rest pain and numbness. MEDICATIONS: Please see nursing report for full details. DEVICES: 6 mm spider wire 2.5 mm angioplasty balloon 5 mm angioplasty balloon LX Hawk One 6 mm x 100 mm LUTONIX DCB (x 2 ; PASS THROUGH CODE REQUIRED) 7 mm x 60 mm Tigris stent Hospital course: Patient was sent to the hospital from the office after complaining of right lower extremity pain and numbness. He underwent the above procedure and tolerated it well. Postoperative course was uneventful. Disposition: DC-01 TO HOME OR SELFCARE Core Measure Documentation - Palliative Care Palliative Care/ Comfort Measures: Not Applicable - Core Measures Any of the following diagnoses?: history only Exam - Constitutional Vitals: Temp Pulse Resp BP Pulse Ox 97.5 F L 60 20 125/75 96 10/27/17 09:23 10/27/17 09:29 10/27/17 09:23 10/27/17 09:29 10/27/17 09:23 Plan Activity: advance as tolerated Weight Bearing Status: Weight Bear as Tolerated Diet: low cholesterol Wound: keep clean and dry Special Instructions: no heavy lifting (no lifting over 20 lbs for one week) Follow up with: BILLIE LEON MD [Primary Care Provider] - 7 Days VLADIMIR NOBLE MD [Staff Physician] - 14 Days
[2017-10-27] MEDS ORDERED: HALFPRIN EC PO SCH (10:00)
--- NOTE | 2017-10-27 10:37 | Progress Note ---
Assessment and Plan RLE pain/decrease sensation -s/p right SFA atherectomy, angioplasty and stenting Hypertension - stable , cont current meds Diabetes - stable with home regimen (insulin and glipizide) Hx of CAD - cont aspirin, statin, plavix Hypothyroidism - on synthroid DVT Px - heparin Subjective Date of service: 10/27/17 Principal diagnosis: Perioperative cardiac management Interval history: Pt seen and examined no acute event o/n plan for d/c today Objective - Constitutional Vitals: Vital Signs - 12hr 10/27/17 10/27/17 10/27/17 04:02 07:27 07:59 Temperature 97.7 F 98.6 F Pulse Rate 77 63 Respiratory 18 18 Rate Blood Pressure 145/80 120/62 O2 Sat by Pulse 95 94 98 Oximetry 10/27/17 10/27/17 10/27/17 09:23 09:28 09:29 Temperature 97.5 F L Pulse Rate 60 60 60 Respiratory 20 Rate Blood Pressure 125/75 125/75 125/75 O2 Sat by Pulse 96 Oximetry General appearance: Present: no acute distress, well-nourished - EENT Eyes: PERRL, EOM intact ENT: hearing intact, clear oral mucosa Ears: bilateral: normal - Neck Neck: supple, normal ROM - Respiratory Respiratory effort: normal Respiratory: bilateral: CTA - Cardiovascular Rhythm: regular Heart Sounds: Present: S1 & S2. Absent: gallop, rub Extremities: pulses intact, No edema, normal color, Full ROM - Gastrointestinal General gastrointestinal: Present: soft, non-tender, non-distended, normal bowel sounds - Integumentary Integumentary: clear, warm, dry - Musculoskeletal Musculoskeletal: 1, strength equal bilaterally - Neurologic Neurologic: moves all extremities - Psychiatric Psychiatric: memory intact, appropriate mood/affect, intact judgment & insight - Labs CBC & Chem 7: 10/27/17 04:00 10/26/17 08:04 Labs: Abnormal lab results 10/26/17 10/26/17 10/27/17 Range/Units 16:19 22:57 04:00 Hgb 15.9 H (11.8-15.2) gm/dl Activated Clotting Time 158 H (74-137) POC Glucose 247 H (70-105) 10/27/17 Range/Units 07:30 Hgb (11.8-15.2) gm/dl Activated Clotting Time (74-137) POC Glucose 280 H (70-105)
== END 2017-10-27 12:00 | disposition home or self-care (01) ==
LOC: 3A 12:02 → UNDOADMIN 12:02 → 2B-ACE 14:16 → PREINTOOBSV 10-26 13:37
PROVIDERS: ADMIT Surgery Vascular Surgery; ATTEND Surgery Vascular Surgery
DX: I74.3 Embolism and thrombosis of arteries of the lower extremities (principal); M79.661 Pain in right lower leg; I25.10 Atherosclerotic heart disease of native coronary artery without angina pectoris; I10 Essential (primary) hypertension; E78.5 Hyperlipidemia, unspecified; E11.9 Type 2 diabetes mellitus without complications; R20.0 Anesthesia of skin; Z83.3 Family history of diabetes mellitus
CPT/HCPCS: 36415; 37227; 75625; 75716; 80048; 80053; 82962; 85014; 85018; 85025; 85049; 85347; 85520; 85610; 85730; 96365; 96366; 96372; 96375; A9270; C1714; C1725; C1769; C1874; C1884; C1887; C1894; C2623; G0378; G0379; J0360; J1170; J1644; J2250; J2405; J3010; J7030; J7040; 96374; J1815; Q9967

== ENCOUNTER 2021-09-16 15:17 | Inpatient (IN) | payer MEDICARE ==
[2021-09-16] MEDS ORDERED: DEXTROSE 50% IN WATER (25GM) 50 ML SYRINGE IV PRN (16:03)
[2021-09-16] MEDS ORDERED: HYDROcodone/ACETAMINOPHEN 5-325 MG TAB PO PRN (16:03)
[2021-09-16] MEDS ORDERED: ACETAMINOPHEN 325 MG TAB PO PRN (16:03)
[2021-09-16] MEDS: carvediloL 25 MG TAB PO SCH (22:07)
[2021-09-16] MEDS: GABAPENTIN 300 MG CAP PO SCH (22:07)
[2021-09-16] MEDS: INSULIN LISPRO 100 UNIT/ML SUB-Q SCH (22:08)
[2021-09-16] MEDS: CYCLOBENZAPRINE 10 MG TAB PO PRN (22:18)
[2021-09-17] MEDS: cloNIDine 0.1 MG TAB PO SCH ×4 (00:18→21:35)
[2021-09-17] MEDS: LEVOTHYROXINE 150 MCG TAB PO SCH (05:38)
[2021-09-17 06:37] LABS: Basophils % (Auto) 0.4 % (0.0-1.8); Eosinophils # (Auto) 0.1 K/mm3 (0.0-0.4); Eosinophils % (Auto) 1.3 % (0.0-4.3); Hematocrit 44.3 % (35.5-45.6); Hemoglobin 15.3 gm/dl (11.8-15.2); Lymphocytes # (Auto) 1.5 K/mm3 (1.2-5.4); Lymphocytes % (Auto) 17.3 % (13.4-35.0); Mean Corpuscular HGB Conc 35 % (32-34); Mean Corpuscular Volume 98 fl (84-94); Monocytes % (Auto) 11.5 % (0.0-7.3); Platelet Count 191 K/mm3 (140-440); Red Blood Count 4.53 M/mm3 (3.65-5.03); Red Cell Distribution Width 13.9 % (13.2-15.2)
[2021-09-17 06:59] LABS: Albumin 3.8 g/dL (3.9-5); Calcium 9.1 mg/dL (8.4-10.2)
[2021-09-17] MEDS: INSULIN LISPRO 100 UNIT/ML SUB-Q SCH ×2 (08:24→12:33)
[2021-09-17] MEDS: ENOXAPARIN 40 MG/0.4 ML INJ SUB-Q SCH (09:01)
[2021-09-17] MEDS: ASPIRIN EC 81 MG TAB PO SCH (09:01)
[2021-09-17] MEDS: LISINOPRIL 40 MG TAB PO SCH (09:02)
[2021-09-17] MEDS: CLOPIDOGREL 75 MG TAB PO SCH (09:02)
[2021-09-17] MEDS: GABAPENTIN 300 MG CAP PO SCH ×2 (09:02→21:34)
[2021-09-17] MEDS: carvediloL 25 MG TAB PO SCH ×2 (09:02→21:34)
[2021-09-17] MEDS: SPIRONOLACTONE 25 MG TAB PO SCH (09:02)
[2021-09-17] MEDS ORDERED: SODIUM CHLORIDE 0.9% 1000 ML 1,000 ML IV SCH (09:15)
--- NOTE | 2021-09-17 10:05 | History and Physical Report ---
History of Present Illness Date: 09/17/21 Date of admission: 09/16/21 17:24 Chief Complaint: CVA History of present illness: 71-year-old male who recently had a fairly uneventful annual physical exam and later woke up at home unable to walk and feeling dizzy. Patient stated that he considered this to likely be a sinus infection and stayed in bed for a couple of days, however with no relief from his symptoms he opted to seek medical attention at a local ER where he was diagnosed with a CVA. CT head showed hypoattenuation in the left cerebellum, follow-up MRI showed an acute/subacute infarct in the left cerebellar hemisphere with a tiny hemorrhage. CTA head and neck showed diminished flow within left cerebellar branches, 60% stenosis involving the mid cervical left ICA, involving left cerebellar infarct. Patient was seen by neurology who recommended aspirin and Plavix for 90 days followed by aspirin only regimen. However upon speaking with the patient this morning it seems that he has been taking Plavix for quite some time due to cardiac and peripheral stent placement. Will look to have patient follow-up with cardiology after discharge so that they can discuss further with the patient and or neurology preference of continuing aspirin 81 mg or Plavix. After the patient was medically stabilized they were transferred for further rehabilitation. All available medical records have been reviewed. Plan of care was discussed with patient. Patient does note that he is constipated and has had some limited success with suppository at the outside hospital. Also states that he has been struggling with hiccups since the CVA and was treated briefly at the outside hospital with relief utilizing Thorazine. Also noted on labs this morning his acute renal insufficiency which appeared to be a continuation of the patient's condition at outside hospital where his renal function was slowly deteriorating. Past History Past Medical History: CAD, diabetes, hypertension, hyperlipidemia, hypothyroidism, PVD Past Surgical History: Other (Cardiac and peripheral stents placed, partial colectomy) Social history: , lives with family. denies: smoking, alcohol abuse, prescription drug abuse Family history: diabetes, hypertension Medications and Allergies Allergies Allergy/AdvReac Type Severity Reaction Status Date / Time No Known Allergies Allergy Verified 10/25/17 12:34 Home Medications Medication Instructions Recorded Confirmed Last Taken Type Amlodipine Besylate 10 mg PO DAILY 10/25/17 09/16/21 10/24/17 History Benazepril HCl [Lotensin] 40 mg PO DAILY 10/25/17 09/16/21 10/24/17 History Clonidine HCl [Kapvay] 0.1 mg PO BID 10/25/17 09/16/21 10/25/17 History Clopidogrel Bisulfate [Plavix] 75 mg PO DAILY 10/25/17 09/16/21 10/24/17 History Cyclobenzaprine HCl [Flexeril 5 MG 5 mg PO PRN 10/25/17 09/16/21 10/24/17 History TAB] Gabapentin [Neurontin] 300 mg PO BID 10/25/17 09/16/21 10/25/17 History ISOSORBIDE MONOnitrate [Imdur ER] 60 mg PO QDAY 10/25/17 09/16/21 10/24/17 History Insulin Glargine,Hum.rec.anlog 30 unit SQ TID 10/25/17 09/16/21 10/24/17 History [Lantus] Levothyroxine Sodium 137 mcg PO QAM 10/25/17 09/16/21 10/24/17 History [Levothyroxine] Pravastatin 40 mg PO DAILY 10/25/17 09/16/21 10/24/17 History Spironolactone [Aldactone] 25 mg PO BID 10/25/17 09/16/21 10/24/17 History carvediloL [Coreg] 25 mg PO BID 10/25/17 09/16/21 10/24/17 History glipiZIDE [Glipizide] 5 mg PO BID 10/25/17 09/16/21 10/24/17 History Active Meds: Active Medications Acetaminophen (Acetaminophen 325 Mg Tab) 650 mg PO Q4H PRN PRN Reason: Pain MILD(1-3)/Fever >100.5/[place] Hydrocodone Bitart/Acetaminophen (Hydrocodone/Acetaminophen 5-325 Mg Tab) 1 each PO Q6H PRN PRN Reason: Pain, Moderate (4-6) Aspirin (Aspirin Ec 81 Mg Tab) 81 mg PO QDAY [facility] Last Admin: 09/17/21 09:01 Dose: 81 mg Documented by: Atorvastatin Calcium (Atorvastatin 40 Mg Tab) 40 mg PO QHS [facility] Last Admin: 09/16/21 22:07 Dose: 40 mg Documented by: Bisacodyl (Bisacodyl 10 Mg Rect Supp) 10 mg DC QDAY PRN PRN Reason: Constipation Carvedilol (Carvedilol 25 Mg Tab) 25 mg PO BID [facility] Last Admin: 09/17/21 09:02 Dose: 25 mg Documented by: Chlorpromazine HCl (Chlorpromazine 25 Mg Tab) 25 mg PO Q8HR [facility] Stop: 09/19/21 13:59 Clonidine HCl (Clonidine 0.1 Mg Tab) 0.1 mg PO Q8HR [facility] Last Admin: 09/17/21 05:37 Dose: 0.1 mg Documented by: Clopidogrel Bisulfate (Clopidogrel 75 Mg Tab) 75 mg PO QDAY [facility] Last Admin: 09/17/21 09:02 Dose: 75 mg Documented by: Cyclobenzaprine HCl (Cyclobenzaprine 10 Mg Tab) 5 mg PO Q8H PRN PRN Reason: Muscle Spasm Last Admin: 09/16/21 22:18 Dose: 5 mg Documented by: Dextrose (Dextrose 50% In Water (25gm) 50 Ml Syringe) 50 ml IV Q30MIN PRN; Protocol PRN Reason: Hypoglycemia Docusate Sodium (Docusate Sodium 100 Mg Cap) 100 mg PO BID [facility] Enoxaparin Sodium (Enoxaparin 40 Mg/0.4 Ml Inj) 40 mg SUB-Q QDAY [facility] Last Admin: 09/17/21 09:01 Dose: 40 mg Documented by: Gabapentin (Gabapentin 300 Mg Cap) 300 mg PO BID [facility] Last Admin: 09/17/21 09:02 Dose: 300 mg Documented by: Sodium Chloride (Nacl 0.9% 1000 Ml) 1,000 mls @ 75 mls/hr IV DIRECT [facility] Stop: 09/17/21 22:34 Insulin Human Lispro (Insulin Lispro 100 Unit/Ml) 0 unit SUB-Q ACHS [facility]; Protocol Last Admin: 09/17/21 08:24 Dose: 2 unit Documented by: Isosorbide Mononitrate (Isosorbide Mononitrate Er 60 Mg Tab) 60 mg PO QDAY [facility] Last Admin: 09/17/21 09:01 Dose: 60 mg Documented by: Levothyroxine Sodium (Levothyroxine 150 Mcg Tab) 150 mcg PO DAILY@0600 [facility] Last Admin: 09/17/21 05:38 Dose: 150 mcg Documented by: Lisinopril (Lisinopril 40 Mg Tab) 40 mg PO QDAY [facility] Last Admin: 09/17/21 09:02 Dose: 40 mg Documented by: Polyethylene Glycol (Polyethylene Glycol 3350 17 Gm Powder) 17 gm PO QDAY PRN PRN Reason: Constipation Spironolactone (Spironolactone 25 Mg Tab) 25 mg PO QDAY [facility] Last Admin: 09/17/21 09:02 Dose: 25 mg Documented by: Review of Systems All systems: negative (ROS negative for 10 systems except as noted below with pertinent positives and negatives.) Constitutional: weight gain, no fever Ears, nose, mouth and throat: sinus pressure, vertigo, no dysphagia Cardiovascular: no chest pain, no palpitations, no edema Respiratory: no cough, no shortness of breath Gastrointestinal: nausea, constipation, other (Hiccups, persistant), no vomiting Genitourinary Male: no incontinence, no urinary retention Musculoskeletal: muscle weakness, gait dysfunction Integumentary: no rash, no pruritis, no wounds Neurological: weakness, parathesias, ataxia, lack of coordination, vertigo, balance difficulties Psychiatric: no anxiety, no sleep disturbances Endocrine: high blood sugars Exam - Exam Narrative exam: MUSCULOSKELETAL SPECIALTY EXAM CONSTITUTIONAL: Well developed, well nourished, appropriately groomed, obese. RIGHT hand dominant. LYMPHATIC: No appreciable abnormalities palpable in neck RESPIRATORY: Clear to auscultation bilaterally, no increased work of breathing CARDIOVASCULAR: Regular Rate/ Rhythm, no swelling, edema or tenderness in BUE or BLE. Pulses palpable in all extremities. All extremities warm. GI: + bowel sounds, soft, NTTP, nondistended. INTEGUMENTARY: Normal, no lesion, rash, masses or bruising noted in extremities. MUSCULOSKELETAL: BUE and BLE normal without defect, crepitus, subluxation, effusion, arthritic changes or TTP. R 5 /5 L 4 /5 ROM within normal limits Tone within normal limits NEURO: CN II : Visual gimenez full to confrontation CN II, III : PERRL CN III, IV, : EOMI with some nystagmus on lateral gaze CN V : Facial sensation intact CN VII : Symmetric facial expressions and eye closure CN VIII : Hearing intact to finger rustle CN IX, X : Palate/uvula elevate midline, phonation normal CN XI : Intact shoulder shrug and head rotation CN XII : Tongue protrudes midline Sensation intact in all extremities without extinction. Reflexes 2+ bilaterally at biceps, brachioradialis and patella. No clonus at ankles. Coordination impaired on left, with dysmetria noted on left. No tremor noted in 4 extremities. Naming and repetition intact. Follows 2 step commands. Aphasia not appreciated Dysarthria not appreciated Dysphagia not appreciated Neglect not appreciated POSTURE and GAIT: Sitting posture good. Balance and gait deferred until seen with therapy. PSYCH: Alert, oriented x3, affect appears euthymic. Insight appears intact. - Constitutional Vitals: Vital Signs - 12hr 09/16/21 09/16/21 09/16/21 22:04 22:05 22:07 Temperature 98.6 F Pulse Rate 59 L 58 L 60 Respiratory 20 Rate Blood Pressure 141/47 141/47 O2 Sat by Pulse 93 94 Oximetry 09/17/21 09/17/21 09/17/21 00:01 00:34 05:21 Temperature 98.4 F 98.3 F Pulse Rate 68 55 L Respiratory 16 20 16 Rate Blood Pressure 113/59 164/58 O2 Sat by Pulse 95 98 96 Oximetry 09/17/21 09/17/21 09/17/21 05:37 07:13 08:01 Temperature 97.5 F L Pulse Rate 60 60 Respiratory 22 18 Rate Blood Pressure 164/58 151/65 O2 Sat by Pulse 99 97 Oximetry - Labs CBC & Chem 7: 09/17/21 05:59 09/17/21 05:59 Labs: Laboratory Results - last 72 hr 09/16/21 09/17/21 09/17/21 21:34 05:59 05:59 WBC 8.7 RBC 4.53 Hgb 15.3 H Hct 44.3 MCV 98 H MCH 34 H MCHC 35 H RDW 13.9 Plt Count 191 Lymph % (Auto) 17.3 Stevens % (Auto) 11.5 H Eos % (Auto) 1.3 Baso % (Auto) 0.4 Lymph # (Auto) 1.5 Stevens # (Auto) 1.0 H Eos # (Auto) 0.1 Baso # (Auto) 0.0 Seg Neutrophils % 69.5 Seg Neutrophils # 6.1 Sodium 135 L Potassium 4.2 Chloride 96.9 L Carbon Dioxide 26 Anion Gap 16 BUN 29 H Creatinine 1.5 H Estimated GFR 46 BUN/Creatinine Ratio 19 Glucose 192 H POC Glucose 317 H Calcium 9.1 Total Bilirubin 0.80 AST 15 ALT 20 Alkaline Phosphatase 72 Total Protein 6.7 Albumin 3.8 L Albumin/Globulin Ratio 1.3 Assessment and Plan Assessment and plan: Patient was assessed and evaluated for Acute Inpatient Rehab Unit. Due to the patients above-mentioned medical complexity, along with decreased functional mobility and self care, this patient continues to require and be appropriate for a comprehensive, multidisciplinary [id number] rehabilitation program. These needs cannot be met in an outpatient or other less intensive setting. The patient would continue to benefit from skilled therapy intervention for at least 3 hours per day, five days a week, with techniques specific to the needs of the patient to improve function, activities of daily living, and reintegration into the community. The patient continues to require: -- OT to improve ROM, self-care, and learn use of adaptive equipment -- PT to improve strength and balance, functional transfers, and ambulation with energy conservation techniques to improve functional mobility -- ENTER[employer]ISE SECURITY ARCHITECT to address cognitive deficits and swallowing ability -- 24 hour RN to ensure and prevent skin breakdown, promote progressive indepen dence while ensuring safety, ensure education regarding medications, and incorporation of the rehabilitation at the bedside -- 24 hour Sand Sifter to coordinate this interdisciplinary program, and to manage/prevent complications as a result of the patients medical comorbidities. -Plan of care by day 4 -Weekly team conferences With such a program, there is a reasonable certainty that the goals in dividualized for this patient can be achieved within the specified length of stay. CVA: Continue Secondary Stroke Prevention (Antithrombotic, Statin (Goal LDL-C <70), BP control (Goal <130/80), GLU control (Goal A1c <7), and lifestyle modification). Monitor for recurrent stroke or post-stroke recrudescence. Continue neuromotor therapy as above. Family training when available. Monitor for post stroke depression, cognitive deficits, seizure, dysphagia, aphasia, shoulder hand syndrome, sensory deficits, spasticity, bowel/bladder deficits, sleep disturbance, vision deficits and DVT. Prognosis for recovery and Secondary Stroke Prevention discussed. Follow up with Neurology. No driving until cleared by Neurologist. Patient will need to discuss with industrial health and safety professor and neurologist preference between the two of continuing on just aspirin versus continuing Plavix. Patient previously taking Plavix per cardiology. Hypertension: Continue medications and adjust for normotension. Goal blood p ressure less than 130/80 while avoiding hypotension. Diabetes: Patient apparently on NPH at home which was held at outside hospital. Sliding scale insulin and carb controlled diet started. Have discussed with the patient the need to reduce simple carbs and to lose weight which patient has already started working on. Vertigo: Symptomatic treatment along with vestibular rehab to hopefully improve patient's symptoms from the CVA. Monitor patient for improvement as this does place him in a higher fall risk category. Acute kidney injury: No mention of chronic kidney disease at outside hospital notes are from the patient. Renal function was deteriorating slowly at outside hospital prior to transfer. We will start gentle IV fluids and monitor for improvement. Persistent hiccups: Treated at outside hospital with Thorazine for short course. This is causing the patient distress and is affecting his ability to eat somewhat. We will start Thorazine at a low dose and monitor for a few days to see if this clears up. Constipation: Medications ordered for stool softener as well as suppositories. Monitor bowel movements and adjust medications as needed for regularity. CAD: Continue to monitor for any signs or symptoms of chest pain or cardiac abnormalities. Will consider placing the patient on telemetry monitoring if warranted. Rest breaks as needed during therapy with the immediate notification of patient experiences any chest pain. Continue antiplatelet therapy and follow-up with cardiology so discussion can be had as to plan going forward to continue antiplatelets. Hypothyroidism: Continue levothyroxine and follow-up as outpatient with PCP. Prior diverticulitis with colon resection: Continue to monitor patient for any signs symptoms of recurrent diverticulitis or issues related to bowel function. ADL dysfunction: OT will work on improving ability to perform ADLs (including assistive devices) to increase independence and decrease caregiver burden and improve functional transfers and mobility training. Difficulty walking: PT will work on gait training and proper use of assistive devices and advance as appropriate to use of stairs and outside ambulation on u [place] surfaces. Unsteadiness on feet: PT will work on improving static and dynamic sitting and standing balance as well as proper use of assistive devices to decrease risk of falls. Abnormality of gait: PT will work to improve safety and efficiency of gait through neuromotor training and gait training along with instruction on proper use of assistive devices. Muscle weakness: PT & OT will work on strengthening exercises to improve functional strength including mixture of closed and open kinetic chain exercises. Debility: PT & OT will work on improving overall functional status to improve p articipation with ADLs, mobility and social involvement. Fatigue: PT & OT will work on improving endurance through aerobic exercises and therapeutic activity while monitoring patients tolerance for activity and vital signs as needed. DVT ppx: Lovenox Pain: Continue physical modalities in therapy and pain medications as needed to achieve functional pain control. Sleep: Monitor and address as needed. Bowel: Monitor and address as needed. Appetite: Monitor and address as needed. Discharge planning: Pending therapy progress and care plan meeting. Will continue discussion with therapy team, SW, patient and family. Restrictions/ Precautions: Falls, neuro deficits WB status: FWB Functional Hx: ADLs: Independent Cognition: Independent Mobility: No AD Barriers to Discharge: Decreased mobility and ability to perform self care, balance deficits, weakness Estimated Length of Stay: 1421 days Discharge Destination: Home with family POST ADMISSION PHYSICIAN EVALUATION I have examined the patient and find that functional status, medical condition and appropriateness for IR[facility] admission are essentially unchanged from those described in the preadmission screening. Will monitor for worsening neurologic dysfunction, shoulder-hand syndrome, posterior depression, intractable hiccups, DVT/PE, bowel and bladder complications and complications due to hypertension, diabetes, acute kidney injury, and electrolyte abnormalities. Will attempt to avoid occurrence of these issues or treat them if they present themselves.
[2021-09-17] MEDS: DOCUSATE SODIUM 100 MG CAP PO SCH ×2 (11:41→21:35)
[2021-09-17] MEDS: ONDANSETRON 4 MG/2 ML INJ IV PRN (11:42)
[2021-09-17] MEDS: POLYETHYLENE GLYCOL 3350 17 GM POWDER PO PRN (11:42)
--- NOTE | 2021-09-17 13:01 | Event Note ---
Date: 09/17/21 Notified that patient has Type 1 Diabetes....listed as Type 2 in paperwork from outside hospital. Have adjusted insulin to home type but at reduced dose due decreased PO intake. Will monitor carefully and adjust as needed. At home patient is reportedly taking Novolin N 40u BID and Novolin R 40u BID.
[2021-09-17] MEDS: chlorproMAZINE 25 MG TAB PO SCH ×2 (14:40→21:34)
[2021-09-17] MEDS: MECLIZINE 25 MG TAB PO PRN (14:41)
[2021-09-17] MEDS: INSULIN NPH, HUMAN 100 UNIT/1 ML SUB-Q SCH (17:44)
[2021-09-17] MEDS: INSULIN REGULAR, HUMAN 100 UNITS/1 ML SUB-Q SCH ×2 (17:45→23:01)
[2021-09-18] MEDS: LEVOTHYROXINE 150 MCG TAB PO SCH (05:48)
[2021-09-18] MEDS: cloNIDine 0.1 MG TAB PO SCH ×3 (05:48→22:47)
[2021-09-18] MEDS: chlorproMAZINE 25 MG TAB PO SCH ×3 (05:48→22:47)
[2021-09-18 07:01] LABS: BUN/Creatinine Ratio 24; Blood Urea Nitrogen 26 mg/dL (9-20); Calcium 8.8 mg/dL (8.4-10.2); Hemolysis Index 18
[2021-09-18] MEDS: INSULIN REGULAR, HUMAN 100 UNITS/1 ML SUB-Q SCH ×4 (08:55→22:48)
[2021-09-18] MEDS: INSULIN NPH, HUMAN 100 UNIT/1 ML SUB-Q SCH ×2 (09:20→18:33)
[2021-09-18] MEDS: GABAPENTIN 300 MG CAP PO SCH ×2 (10:56→22:37)
[2021-09-18] MEDS: carvediloL 25 MG TAB PO SCH ×2 (10:56→22:37)
[2021-09-18] MEDS: ASPIRIN EC 81 MG TAB PO SCH (10:56)
[2021-09-18] MEDS: DOCUSATE SODIUM 100 MG CAP PO SCH ×2 (10:56→22:37)
[2021-09-18] MEDS: SPIRONOLACTONE 25 MG TAB PO SCH (10:56)
[2021-09-18] MEDS: CLOPIDOGREL 75 MG TAB PO SCH (10:56)
[2021-09-18] MEDS: LISINOPRIL 40 MG TAB PO SCH (10:56)
[2021-09-18] MEDS: ENOXAPARIN 40 MG/0.4 ML INJ SUB-Q SCH (10:57)
[2021-09-18] MEDS: POLYETHYLENE GLYCOL 3350 17 GM POWDER PO PRN (12:51)
[2021-09-19] MEDS: cloNIDine 0.1 MG TAB PO SCH ×3 (06:15→22:11)
[2021-09-19] MEDS: chlorproMAZINE 25 MG TAB PO SCH (06:15)
[2021-09-19] MEDS: LEVOTHYROXINE 150 MCG TAB PO SCH (06:15)
[2021-09-19] MEDS: INSULIN REGULAR, HUMAN 100 UNITS/1 ML SUB-Q SCH ×5 (09:10→22:12)
[2021-09-19] MEDS: ENOXAPARIN 40 MG/0.4 ML INJ SUB-Q SCH (09:12)
[2021-09-19] MEDS: LISINOPRIL 40 MG TAB PO SCH (09:13)
[2021-09-19] MEDS: ASPIRIN EC 81 MG TAB PO SCH (09:13)
[2021-09-19] MEDS: GABAPENTIN 300 MG CAP PO SCH ×2 (09:14→22:11)
[2021-09-19] MEDS: carvediloL 25 MG TAB PO SCH ×2 (09:15→22:11)
[2021-09-19] MEDS: SPIRONOLACTONE 25 MG TAB PO SCH (09:16)
[2021-09-19] MEDS: INSULIN NPH, HUMAN 100 UNIT/1 ML SUB-Q SCH ×2 (09:24→20:00)
[2021-09-19] MEDS: CLOPIDOGREL 75 MG TAB PO SCH (09:28)
--- NOTE | 2021-09-19 09:29 | Progress Note ---
Subjective Date of service: 09/19/21 Principal diagnosis: CVA Interval history: 71-year-old male who recently had a fairly uneventful annual physical exam and later woke up at home unable to walk and feeling dizzy. Patient stated that he considered this to likely be a sinus infection and stayed in bed for a couple of days, however with no relief from his symptoms he opted to seek medical atte ntion at a local ER where he was diagnosed with a CVA. CT head showed hypoattenuation in the left cerebellum, follow-up MRI showed an acute/subacute infarct in the left cerebellar hemisphere with a tiny hemorrhage. CTA head and neck showed diminished flow within left cerebellar branches, 60% stenosis involving the mid cervical left ICA, involving left cerebellar infarct. Patient was seen by neurology who recommended aspirin and Plavix for 90 days followed by aspirin only regimen. However upon speaking with the patient this morning it seems that he has been taking Plavix for quite some time due to cardiac and peripheral stent placement. Will look to have patient follow-up with cardiology after discharge so that they can discuss further with the patient and or neurology preference of continuing aspirin 81 mg or Plavix. After the patient was medically stabilized they were transferred for further rehabilitation. All available medical records have been reviewed. Plan of care was discussed with patient. Interval History: Patient is participating in therapy and making reasonable progress. Taking rest breaks as needed. -BM. Denies pain, palpitations, dyspnea, cough, N/V, weakn ess, or joint pain. CVA: Neurologically stable, patient continues to have vertigo which has improved slightly and has balance deficits. Continue to monitor for shoulder-hand syndrome, post stroke depression, secondary CVA or recrudescence. Continue secondary stroke prevention and stroke education. Hypertension: Blood pressures improving but remains variable and is not fully normalized. We will continue to monitor on the patient's medications that he is currently on and adjust medications as needed for normotension while avoiding hypotension. Diabetes: Was informed over the weekend that the patient had type 1 diabetes from nursing. In talking with the patient today it sounds like he may have been misinformed. Patient had diabetes starting about 20 years ago which sounds consistent with type 2 diabetes and he was eventually transitioned to insulin. At that point the patient says he was converted to type 1 diabetes. 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 At any rate, it seems that the patient is type 2 diabetes with a decrease in function of his pancreas. Spoke with him and due to his decreased oral intake we will slowly elevate his insulin based on his glucose numbers. Once he returns home to his normal diet he may resume his normal doses of medications. Would recommend that he follow-up with an delimer for clarification Vertigo: This is improved slightly since the patient's admission. He did have 1 dose of meclizine which is still available as needed. The vertigo has caused troubles with balance as well as nausea and vomiting. We will continue to monitor and attempt to do vestibular treatment if able and utilize meclizine as needed. Patient did have a cerebellar stroke. Acute kidney injury: Improved over the weekend with 1 L of gentle IV fluids. Current labs are pending and may need to infuse 1 more liter of IV fluids. We will continue to monitor renal function while the patient is here and address as needed. Persistent hiccups: Hiccups have improved over the weekend and patient would like to discontinue Thorazine. We will stop it after tonight's dose and monitor for return of hiccups. Constipation: Patient still has not had a bowel movement, discussed with him and nursing to utilize either fleets enema or suppository in addition to current oral medications. Monitor bowel movement for regularity and adjust medications as needed. CAD: Continue antiplatelets, patient denies any signs of chest pain. Recommend patient follow-up with line crew supervisor and neurologist for consideration of cont inuing either Plavix or aspirin as patient was on Plavix prior to the stroke. ADL mobility dysfunction: Continue therapy in order to improve patient's ability to ambulate and improve his independence. All records, vitals, labs and medications were reviewed. No other issues per patient, nursing or therapy. Objective - Exam Narrative Exam: MUSCULOSKELETAL SPECIALTY EXAM CONSTITUTIONAL: Well developed, well nourished, appropriately groomed, obese. RIGHT hand dominant. RESPIRATORY: Clear to auscultation bilaterally, no increased work of breathing CARDIOVASCULAR: Regular Rate/ Rhythm, no swelling, edema or tenderness in BUE or BLE. Pulses palpable in all extremities. All extremities warm. GI: + bowel sounds, soft, NTTP, nondistended. INTEGUMENTARY: Normal, no lesion, rash, masses or bruising noted in extremities. MUSCULOSKELETAL: BUE and BLE normal without defect, crepitus, subluxation, effusion, arthritic c hanges or TTP. R 5 /5 L 4 /5 ROM within normal limits Tone within normal limits NEURO: CN III, IV, : EOMI with some nystagmus on lateral gaze Sensation intact in all extremities without extinction. No tremor noted in 4 extremities. Naming and repetition intact. Follows 2 step commands. Aphasia not appreciated Dysarthria not appreciated Dysphagia not appreciated Neglect not appreciated POSTURE and GAIT: Sitting posture good. Balance and gait deferred until seen with therapy. PSYCH: Alert, oriented x3, affect appears euthymic. Insight appears intact. - Constitutional Vitals: Vital Signs - 12hr 09/18/21 09/18/21 09/19/21 21:33 22:47 05:24 Temperature 97.5 F L Pulse Rate 64 59 L Respiratory 16 Rate Blood Pressure 140/74 155/68 O2 Sat by Pulse 98 95 Oximetry 09/19/21 09/19/21 09/19/21 05:38 09:13 09:15 Temperature 98.5 F Pulse Rate 74 75 75 Respiratory 16 Rate Blood Pressure 130/56 O2 Sat by Pulse 97 Oximetry 09/19/21 09:16 Temperature Pulse Rate 75 Respiratory Rate Blood Pressure O2 Sat by Pulse Oximetry - Allied health notes Allied health notes reviewed: nursing, PT, ST, OT FIMS assessment as documented by PT/OT/ST: Locomotion- walk/wheelchair Ambulation Distance 5 - Labs CBC & Chem 7: 09/17/21 05:59 09/18/21 06:21 Labs: Laboratory Results - last 72 hr 09/16/21 09/17/21 09/17/21 21:34 05:59 05:59 WBC 8.7 RBC 4.53 Hgb 15.3 H Hct 44.3 MCV 98 H MCH 34 H MCHC 35 H RDW 13.9 Plt Count 191 Lymph % (Auto) 17.3 Centre % (Auto) 11.5 H Eos % (Auto) 1.3 Baso % (Auto) 0.4 Lymph # (Auto) 1.5 Centre # (Auto) 1.0 H Eos # (Auto) 0.1 Baso # (Auto) 0.0 Seg Neutrophils % 69.5 Seg Neutrophils # 6.1 Sodium 135 L Potassium 4.2 Chloride 96.9 L Carbon Dioxide 26 Anion Gap 16 BUN 29 H Creatinine 1.5 H Estimated GFR 46 BUN/Creatinine Ratio 19 Glucose 192 H POC Glucose 317 H Calcium 9.1 Total Bilirubin 0.80 AST 15 ALT 20 Alkaline Phosphatase 72 Total Protein 6.7 Albumin 3.8 L Albumin/Globulin Ratio 1.3 09/17/21 09/17/21 09/17/21 11:52 16:39 22:02 WBC RBC Hgb Hct MCV MCH MCHC RDW Plt Count Lymph % (Auto) Centre % (Auto) Eos % (Auto) Baso % (Auto) Lymph # (Auto) Centre # (Auto) Eos # (Auto) Baso # (Auto) Seg Neutrophils % Seg Neutrophils # Sodium Potassium Chloride Carbon Dioxide Anion Gap BUN Creatinine Estimated GFR BUN/Creatinine Ratio Glucose POC Glucose 263 H 234 H 205 H Calcium Total Bilirubin AST ALT Alkaline Phosphatase Total Protein Albumin Albumin/Globulin Ratio 09/18/21 09/18/21 09/18/21 06:21 07:36 12:45 WBC RBC Hgb Hct MCV MCH MCHC RDW Plt Count Lymph % (Auto) Centre % (Auto) Eos % (Auto) Baso % (Auto) Lymph # (Auto) Centre # (Auto) Eos # (Auto) Baso # (Auto) Seg Neutrophils % Seg Neutrophils # Sodium 137 Potassium 4.2 Chloride 100.1 Carbon Dioxide 24 Anion Gap 17 BUN 26 H Creatinine 1.1 Estimated GFR > 60 BUN/Creatinine Ratio 24 Glucose 171 H POC Glucose 183 H 307 H Calcium 8.8 Total Bilirubin AST ALT Alkaline Phosphatase Total Protein Albumin Albumin/Globulin Ratio 09/18/21 09/18/21 09/19/21 17:38 21:14 08:26 WBC RBC Hgb Hct MCV MCH MCHC RDW Plt Count Lymph % (Auto) Centre % (Auto) Eos % (Auto) Baso % (Auto) Lymph # (Auto) Centre # (Auto) Eos # (Auto) Baso # (Auto) Seg Neutrophils % Seg Neutrophils # Sodium Potassium Chloride Carbon Dioxide Anion Gap BUN Creatinine Estimated GFR BUN/Creatinine Ratio Glucose POC Glucose 305 H 293 H 261 H Calcium Total Bilirubin AST ALT Alkaline Phosphatase Total Protein Albumin Albumin/Globulin Ratio Assessment and Plan CVA: Continue Secondary Stroke Prevention (Antithrombotic, Statin (Goal LDL-C <70), BP control (Goal <130/80), GLU control (Goal A1c <7), and lifestyle modification). Monitor for recurrent stroke or post-stroke recrudescence. Continue neuromotor therapy as above. Family training when available. Monitor for post stroke depression, cognitive deficits, seizure, dysphagia, aphasia, shoulder hand syndrome, sensory deficits, spasticity, bowel/bladder deficits, sleep disturbance, vision deficits and DVT. Prognosis for recovery and Secondary Stroke Prevention discussed. Follow up with Neurology. No driving until cleared by Neurologist. Patient will need to discuss with line crew supervisor and neurologist preference between the two of continuing on just aspirin versus continuing Plavix. Patient previously taking Plavix per cardiology. Hypertension: Continue medications and adjust for normotension. Goal blood pressure less than 130/80 while avoiding hypotension. Diabetes: Patient apparently on NPH at home which was held at outside hospital. Sliding scale insulin and carb controlled diet started. Have discussed with the patient the need to reduce simple carbs and to lose weight which patient has already started working on. Patient states he believes he was told he was type 1 however his history and diagnosis is more consistent with type 2 diabetes. I have attempted to provide education with the patient that just because he went from oral medications to insulin does not mean he now has type 1 diabetes. We will continue to monitor his oral intake and adjust insulin as needed. Vertigo: Symptomatic treatment along with vestibular rehab to hopefully improve patient's symptoms from the CVA. Monitor patient for improvement as this does place him in a higher fall risk category. Acute kidney injury: No mention of chronic kidney disease at outside hospital notes are from the patient. Renal function was deteriorating slowly at outside hospital prior to transfer. We will start gentle IV fluids and monitor for improvement. Persistent hiccups: Treated at outside hospital with Thorazine for short course. This is causing the patient distress and is affecting his ability to eat somewhat. We will start Thorazine at a low dose and monitor for a few days to see if this clears up. Constipation: Medications ordered for stool softener as well as suppositories. Monitor bowel movements and adjust medications as needed for regularity. CAD: Continue to monitor for any signs or symptoms of chest pain or cardiac abnormalities. Will consider placing the patient on telemetry monitoring if warranted. Rest breaks as needed during therapy with the immediate notification of patient experiences any chest pain. Continue antiplatelet therapy and follow-up with cardiology so discussion can be had as to plan going forward to continue antiplatelets. Hypothyroidism: Continue levothyroxine and follow-up as outpatient with PCP. Prior diverticulitis with colon resection: Continue to monitor patient for any signs symptoms of recurrent diverticulitis or issues related to bowel function. ADL dysfunction: OT will work on improving ability to perform ADLs (including assistive devices) to increase independence and decrease caregiver burden and improve functional transfers and mobility training. Difficulty walking: PT will work on gait training and proper use of assistive devices and advance as appropriate to use of stairs and outside ambulation on uneven surfaces. Unsteadiness on feet: PT will work on improving static and dynamic sitting and standing balance as well as proper use of assistive devices to decrease risk of falls. Abnormality of gait: PT will work to improve safety and efficiency of gait through neuromotor training and gait training along with instruction on proper use of assistive devices. Muscle weakness: PT & OT will work on strengthening exercises to improve functional strength including mixture of closed and open kinetic chain exercises . Debility: PT & OT will work on improving overall functional status to improve participation with ADLs, mobility and social involvement. Fatigue: PT & OT will work on improving endurance through aerobic exercises and therapeutic activity while monitoring patients tolerance for activity and vital signs as needed. DVT ppx: Lovenox Pain: Continue physical modalities in therapy and pain medications as needed to achieve functional pain control. Sleep: Monitor and address as needed. Bowel: Monitor and address as needed. Appetite: Monitor and address as needed. Discharge planning: Pending therapy progress and care plan meeting. Will continue discussion with therapy team, SW, patient and family. Restrictions/ Precautions: Falls, neuro deficits WB status: FWB Functional Hx: ADLs: Independent Cognition: Independent Mobility: No AD Barriers to Discharge: Decreased mobility and ability to perform self care, balance deficits, weakness Estimated Length of Stay: 1421 days Discharge Destination: Home with family
[2021-09-19 11:29] LABS: Hematocrit 43.2 % (35.5-45.6); Hemoglobin 15.2 gm/dl (11.8-15.2); Mean Corpuscular HGB Conc 35 % (32-34); Mean Corpuscular Volume 97 fl (84-94); Platelet Count 190 K/mm3 (140-440); Red Blood Count 4.45 M/mm3 (3.65-5.03); Red Cell Distribution Width 14.1 % (13.2-15.2)
[2021-09-19 11:48] LABS: BUN/Creatinine Ratio 21; Blood Urea Nitrogen 25 mg/dL (9-20); Calcium 9.2 mg/dL (8.4-10.2); Hemolysis Index 8
[2021-09-19] MEDS ORDERED: FLEET ENEMA PR PRN (12:00)
[2021-09-19] MEDS ORDERED: SODIUM CHLORIDE 0.9% 1000 ML 1,000 ML IV SCH (16:15)
--- NOTE | 2021-09-19 19:32 | IRU Plan of Care ---
Interdisciplinary Plan of Care - IP IRU INTERDISCIPLIN[facility] PLAN: [facility] Plan of Care IRU Interdisciplinary Care Plan Start: 09/18/21 12:09 Freq: Status: Active Protocol: Document 09/19/21 09:33 AB (Rec: 09/19/21 09:38 AB [id number]) Interdisciplinary Problem List Interdisciplinary Problem List Interdisciplinary Problem List Impaired Eating/Swallowing, Query Text:Answers will Trigger Problems Impaired Bathing/Grooming, and Outcomes on Worklist. Impaired Dressing,Impaired Mobility,Impaired Transfers, Impaired Toileting,Impaired Home Management,Impaired Safety IRU Interdisciplinary Care Plan Therapy Services Therapy Services Will Include: Physical Therapy,Occupational Query Text:Patient will be seen for a Therapy minimum of 3 hours of daily therapy 5 out of 7 days a week. Therapy intensity may be adjusted within a 7 consecutive day period to effectively serve the individual needs of the patient. Treatment Frequency/Intensity/Duration Treatment Frequency 5x/ week Treatment Intensity 3 hours/ day Treatment Duration 10-14 days Problem Area: Eating/Swallowing Eating/Swallowing Outcomes Feed Self Eating/Swallowing Interventions Optimal Positioning,Use of Assistive Devices,Compensatory Strategies,Neuromuscular Re- Education,ADL Training,Patient /Caregiver Education Problem Area: Bathing/Grooming Bathing/Grooming Outcomes Improve [place] w/ Grooming,Improve [place] w/ Bathing Bathing/Grooming Interventions ADL Training,Use of Assistive Devices,Therapeutic Exercise, Therapeutic Activity, Neuromuscular Re-Education, Balance Work,Activity Tolerance Work,Patient/ Caregiver Education Problem Area: Dressing Dressing Outcomes Improve [place] w/ UB Dressing,Improve [place] w/ LB Dressing Dressing Interventions ADL Training,Use of Assistive Devices,Neuromuscular Re- Education,Therapeutic Exercise ,Balance Work,Modalities, Patient/Caregiver Education Problem Area: Mobility Mobility Outcomes Improve [place] w/ Ambulation,Improve [place] w/ Stairs/Curb, Improve [place] w/ Wheelchair Mobility Interventions Therapeutic Exercise, Neuromuscular Re-Ed.,Visual/ Perceptual Training,Activity Tolerance Work,Use of Assistive Devices,Patient/ Caregiver Education,Gait Training,W/C Mobility Work Problem Area: Transfers Transfers Outcomes Improve [place] w/ Bed Transfers,Improve [place] w/ Toilet Transfers,Improve [place] w/ Tub/Shower Transfers,Improve [place] w/ Car Transfers Transfers Interventions Transfer Training,Therapeutic Exercise,Neuromuscular Re- Education,Visual/Perceptual Training,Activity Tolerance Work,Modalities,Use of Assistive Devices,Patient/ Caregiver Education Problem Area: Bowel/Bladder Managment Bowel/Bladder Outcomes Bowel/Bladder Interventions Problem Area: Toileting Toileting Outcomes Improve [place] w/ Toileting Toileting Interventions ADL Training,Balance Work,Use of Assistive Devices,Patient/ Caregiver Education Problem Area: Nutrition Nutrition Outcomes Nutrition Interventions Problem Area: Comprehension Comprehension Outcomes Comprehension Interventions Problem Area: Expression Expression Outcomes Expression Interventions Problem Area: Problem Solving Problem Solving Outcomes Problem Solving Interventions Problem Area: Memory Memory Outcomes Memory Interventions Problem Area: Pain Management Pain Management Outcomes Pain Management Interventions Problem Area: Knowledge Deficits Knowledge Deficits Outcomes Demonstrate Ability to Manage Blood Glucose Knowledge Deficits Interventions Disease/Injury/Sx. Intervention Education, Medication Use Education, Disease Management Education Problem Area: Skin/Tissue Integrity Skin/Tissue Integrity Outcomes Skin/Tissue Integrity Interventions Problem Area: Social Interaction Social Interaction Outcomes Social Interaction Interventions Problem Area: Adjustment to Disability Adjustment to Disability Outcomes Adjustment to Disability Interventions Problem Area: Discharge Concerns Discharge Concerns Outcomes Discharge w/ Necessary Equipment,Have Home Health/ Outpatient Services Discharge Concerns Interventions Discharge Planning,Equipment Assessment, Acquisition and Placement,Family/Caregiver Training Problem Area: Community Reintegration Community Reintegration Outcomes Community Reintegration Interventions Problem Area: Home Management Home Management Outcomes Improve [place] w/ Home Management Home Management Interventions Money Management Tasks,Meal Preparation,Clothing Care, Activity Tolerance Work, Leisure Skills Development, House Cleaning,Shopping, Telephone Use,Patient/ Caregiver Education,Use of TLA Problem Area: Safety Safety Outcomes Provide Safe Environment, Perform Selfcare Safely, Demonstrate Good Safety w/ Transfers/Mobility Safety Interventions Identify Fall Risk,[place] Pt. to Environment,Reduce Environmental Hazards,Neuro Check Assessment,Implement Mechanical Devices, i.e. Chair Alarm (Post Fall Update),Re- Educate Patient/Caregiver for Safety (Post Fall Update) Problem Area: Medication Education Medication Education Outcomes Medication Education Interventions Problem Area: Diabetes Education Diabetes Education Outcomes Demonstrate Knowledge of Resources Availlable in Diabetic Ed. Folder Diabetes Education Interventions Give Pt. Diabetes Education Folder,Discuss Pathophysiology of Diabetes Problem Area: Oxygenation Oxygenation Outcomes Oxygenation Interventions Problem Area: Cardiovascular Cardiovascular Outcomes Maintain or Improve Cardiovascular Status Cardiovascular Interventions Assess Vital Signs at least Every 4 hours,Cardiac Monitoring, EKG and ABG as Ordered. Physician Only Medical Prognosis and Rehabilitation Potential (Completed by Physician) Good medical prognosis, good rehab potential This plan of care has been developed based on the findings from the pre- admission assessment, post admission physician evaluation, information gathered from the assessments from all therapy disciplines and other pertinent clinicians. The plan of care has been reviewed and discussed in collaboration with the interdisciplinary team. The plan of care will be reviewed and updated at least weekly.
[2021-09-19] MEDS: DOCUSATE SODIUM 100 MG CAP PO SCH ×2 (20:00→22:15)
[2021-09-20] MEDS: LEVOTHYROXINE 150 MCG TAB PO SCH (07:04)
[2021-09-20] MEDS: cloNIDine 0.1 MG TAB PO SCH ×3 (07:04→21:19)
[2021-09-20 07:32] LABS: Hematocrit 43.4 % (35.5-45.6); Hemoglobin 14.8 gm/dl (11.8-15.2); Mean Corpuscular HGB Conc 34 % (32-34); Mean Corpuscular Volume 98 fl (84-94); Platelet Count 175 K/mm3 (140-440); Red Blood Count 4.45 M/mm3 (3.65-5.03); Red Cell Distribution Width 14.3 % (13.2-15.2)
[2021-09-20 07:55] LABS: Calcium 8.9 mg/dL (8.4-10.2)
[2021-09-20] MEDS: INSULIN REGULAR, HUMAN 100 UNITS/1 ML SUB-Q SCH ×7 (08:54→21:20)
[2021-09-20] MEDS: INSULIN NPH, HUMAN 100 UNIT/1 ML SUB-Q SCH ×2 (08:55→17:48)
--- NOTE | 2021-09-20 10:17 | Progress Note ---
Subjective Date of service: 09/20/21 Principal diagnosis: CVA Interval history: 71-year-old male who recently had a fairly uneventful annual physical exam and later woke up at home unable to walk and feeling dizzy. Patient stated that he considered this to likely be a sinus infection and stayed in bed for a couple of days, however with no relief from his symptoms he opted to seek medical atte ntion at a local ER where he was diagnosed with a CVA. CT head showed hypoattenuation in the left cerebellum, follow-up MRI showed an acute/subacute infarct in the left cerebellar hemisphere with a tiny hemorrhage. CTA head and neck showed diminished flow within left cerebellar branches, 60% stenosis involving the mid cervical left ICA, involving left cerebellar infarct. Patient was seen by neurology who recommended aspirin and Plavix for 90 days followed by aspirin only regimen. However upon speaking with the patient this morning it seems that he has been taking Plavix for quite some time due to cardiac and peripheral stent placement. Will look to have patient follow-up with cardiology after discharge so that they can discuss further with the patient and or neurology preference of continuing aspirin 81 mg or Plavix. After the patient was medically stabilized they were transferred for further rehabilitation. All available medical records have been reviewed. Plan of care was discussed with patient. Interval History: Patient is participating in therapy and making reasonable progress. Taking rest breaks as needed. +BM this a.m. Denies pain, palpitations, dyspnea, cough, N /V, or joint pain. CVA: Neurologically stable, patient continues to have balance deficits, but sta deepak vertigo and dizziness has improved over the last couple of days. Continue to monitor for shoulder-hand syndrome, post stroke depression, secondary CVA or recrudescence. Continue secondary stroke prevention and stroke education. Epistaxis: Was called yesterday afternoon and informed the patient had fairly significant epistaxis. Held aspirin and Lovenox today, rechecked hemoglobin which is dropped slightly. Will restart aspirin tomorrow and utilize SCDs for DVT prophylaxis. Monitor for any further signs of bleeding. Hypertension: Blood pressures improving but remains variable and is not fully normalized. We will continue to monitor on the patient's medications that he is currently on and adjust medications as needed for normotension while avoiding hypotension. BPH: Clinically diagnosed based on patient's history. May also be playing a part of urine retention which is exacerbating acute kidney injury. Will start Flomax and monitor for improvement in renal function prior to giving more fluids or further work-up. Diabetes: Patient had diabetes starting about 20 years ago which sounds consistent with type 2 diabetes and he was eventually transitioned to insulin. At that point the patient says he was converted to type 1 diabetes. 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 At any rate, it seems that the patient is type 2 diabetes with a decrease in function of his pancreas. Spoke with him and due to his decreased oral intake we will slowly elevate his insulin based on his glucose numbers. Once he returns home to his normal diet he may resume his normal doses of medications. Would recommend that he follow-up with an interior design instructor for clarification Vertigo: This is improved slightly since the patient's admission. Improving, meclizine available as needed Acute kidney injury: Variable improvement, continue to monitor BMP regularly and start Flomax in order to improve elimination of urine. Look to further work-up if renal function has not improved with start Flomax. We will continue to monitor renal function while the patient is here and address as needed. Persistent hiccups: Resolved after a short course of Thorazine. Monitor for any further issues. Constipation: Monitor bowel movement for regularity and adjust medications as needed. CAD: Continue antiplatelets, patient denies any signs of chest pain. Recommend patient follow-up with unemployment inspector and neurologist for consideration of continuing either Plavix or aspirin as patient was on Plavix prior to the stroke. ADL mobility dysfunction: Continue therapy in order to improve patient's ability to ambulate and improve his independence. All records, vitals, labs and medications were reviewed. No other issues per patient, nursing or therapy. Patient discussed during team conference today. Still having significant difficulties with balance especially dynamic balance. May be able to get the patient to the level of going home with a rolling walker and not a wheelchair and will continue working towards that end goal. At this point patient is actively being managed for medical conditions and we are attempting to stabilize him to prepare to go home. We will look to discharge home hopefully towards the end of next week or the first of the week after depending upon his progress towards goals and safety of discharge. In total, 37 minutes was invested in patient care today including greater than 50% of that time counseling and coordinating care as indicated above. Objective - Exam Narrative Exam: MUSCULOSKELETAL SPECIALTY EXAM CONSTITUTIONAL: Well developed, well nourished, appropriately groomed, obese. RIGHT hand dominant. RESPIRATORY: Clear to auscultation bilaterally, no increased work of breathing CARDIOVASCULAR: Regular Rate/ Rhythm, no swelling, edema or tenderness in BUE or BLE. All extremities warm. GI: + bowel sounds, soft, NTTP, nondistended. INTEGUMENTARY: Normal, no lesion, rash, masses or bruising noted in extremities. MUSCULOSKELETAL: BUE and BLE normal without defect, crepitus, subluxation, effusion, arthritic changes or TTP. R 5 /5 L 4 /5 ROM within normal limits Tone within normal limits NEURO: CN III, IV, : EOMI with some nystagmus on lateral gaze Sensation intact in all extremities without extinction. No tremor noted in 4 extremities. Naming and repetition intact. Follows 2 step commands. Aphasia not appreciated Dysarthria not appreciated Dysphagia not appreciated Neglect not appreciated POSTURE and GAIT: Sitting posture good. Balance and gait poor to fair with ambulation utilizing a rolling walker. PSYCH: Alert, oriented x3, affect appears euthymic. Insight appears intact. - Constitutional Vitals: Vital Signs - 12hr 09/19/21 09/20/21 09/20/21 23:00 06:34 08:32 Temperature 97.8 F 98.6 F Pulse Rate 61 56 L Respiratory 16 18 Rate Blood Pressure 157/69 137/62 O2 Sat by Pulse 98 95 97 Oximetry 09/20/21 09:43 Temperature Pulse Rate Respiratory Rate Blood Pressure O2 Sat by Pulse 100 Oximetry - Allied health notes Allied health notes reviewed: nursing, PT, OT FIMS assessment as documented by PT/OT/ST: Locomotion- walk/wheelchair Ambulation Distance 5 - Labs CBC & Chem 7: 09/20/21 06:58 09/20/21 06:58 Labs: Laboratory Results - last 72 hr 09/17/21 09/17/21 09/17/21 11:52 16:39 22:02 WBC RBC Hgb Hct MCV MCH MCHC RDW Plt Count Sodium Potassium Chloride Carbon Dioxide Anion Gap BUN Creatinine Estimated GFR BUN/Creatinine Ratio Glucose POC Glucose 263 H 234 H 205 H Calcium 09/18/21 09/18/21 09/18/21 06:21 07:36 12:45 WBC RBC Hgb Hct MCV MCH MCHC RDW Plt Count Sodium 137 Potassium 4.2 Chloride 100.1 Carbon Dioxide 24 Anion Gap 17 BUN 26 H Creatinine 1.1 Estimated GFR > 60 BUN/Creatinine Ratio 24 Glucose 171 H POC Glucose 183 H 307 H Calcium 8.8 09/18/21 09/18/21 09/19/21 17:38 21:14 08:26 WBC RBC Hgb Hct MCV MCH MCHC RDW Plt Count Sodium Potassium Chloride Carbon Dioxide Anion Gap BUN Creatinine Estimated GFR BUN/Creatinine Ratio Glucose POC Glucose 305 H 293 H 261 H Calcium 09/19/21 09/19/21 09/19/21 11:04 11:04 12:40 WBC 9.0 RBC 4.45 Hgb 15.2 Hct 43.2 MCV 97 H MCH 34 H MCHC 35 H RDW 14.1 Plt Count 190 Sodium 132 L Potassium 4.6 Chloride 95.6 L Carbon Dioxide 22 Anion Gap 19 BUN 25 H Creatinine 1.2 Estimated GFR > 60 BUN/Creatinine Ratio 21 Glucose 292 H POC Glucose 324 H Calcium 9.2 09/19/21 09/19/21 09/20/21 17:33 20:43 06:58 WBC RBC Hgb Hct MCV MCH MCHC RDW Plt Count Sodium 134 L Potassium 4.3 Chloride 97.3 L Carbon Dioxide 26 Anion Gap 15 BUN 23 H Creatinine 1.4 H Estimated GFR 50 BUN/Creatinine Ratio 16 Glucose 229 H POC Glucose 254 H 285 H Calcium 8.9 09/20/21 09/20/21 06:58 08:29 WBC 8.2 RBC 4.45 Hgb 14.8 Hct 43.4 MCV 98 H MCH 33 H MCHC 34 RDW 14.3 Plt Count 175 Sodium Potassium Chloride Carbon Dioxide Anion Gap BUN Creatinine Estimated GFR BUN/Creatinine Ratio Glucose POC Glucose 268 H Calcium Assessment and Plan CVA: Continue Secondary Stroke Prevention (Antithrombotic, Statin (Goal LDL-C <70), BP control (Goal <130/80), GLU control (Goal A1c <7), and lifestyle modification). Monitor for recurrent stroke or post-stroke recrudescence. Continue neuromotor therapy as above. Family training when available. Monitor for post stroke depression, cognitive deficits, seizure, dysphagia, aphasia, shoulder hand syndrome, sensory deficits, spasticity, bowel/bladder deficits, sleep disturbance, vision deficits and DVT. Prognosis for recovery and Secondary Stroke Prevention discussed. Follow up with Neurology. No driving until cleared by Neurologist. Patient will need to discuss with unemployment inspector and neurologist preference between the two of continuing on just aspirin versus continuing Plavix. Patient previously taking Plavix per cardiology. Hypertension: Continue medications and adjust for normotension. Goal blood pressure less than 130/80 while avoiding hypotension. Blood pressure values have been variable since admission. Will monitor effect of Flomax on patient and possibly look to increase medications once stabilized. Diabetes: Patient taking Novolin in 40 units twice daily and Novolin R 40 units twice daily at home. Question as to whether the patient has type 2 or type 1.5 diabetes. At any rate we have increased his basal insulin and are monitoring need for sliding scale insulin and have also added a flat rate of Novolin R in addition to the sliding scale to better control his glucose. We will continue to monitor and adjust as needed in order to hopefully obtain normoglycemia. Vertigo: Symptomatic treatment along with vestibular rehab to hopefully improve patient's symptoms from the CVA. Monitor patient for improvement as this does place him in a higher fall risk category. Seems to be improving. Acute kidney injury: No mention of chronic kidney disease at outside hospital notes are from the patient. Renal function was deteriorating slowly at outside hospital prior to transfer. We will start gentle IV fluids and monitor for improvement. BPH: Diagnosed clinically based on symptoms and history. Will start Flomax and monitor for improvement and possible improvement in renal function as well. Persistent hiccups: Treated at outside hospital with Thorazine, continue treatment here for a couple of days with marked improvement and have since discontinued Thorazine. Will monitor for any return. Constipation: Medications ordered for stool softener as well as suppositories. Monitor bowel movements and adjust medications as needed for regularity. CAD: Continue to monitor for any signs or symptoms of chest pain or cardiac abnormalities. Will consider placing the patient on telemetry monitoring if warranted. Rest breaks as needed during therapy with the immediate notification of patient experiences any chest pain. Continue antiplatelet therapy and follow-up with cardiology so discussion can be had as to plan going forward to continue antiplatelets. Hypothyroidism: Continue levothyroxine and follow-up as outpatient with PCP. Prior diverticulitis with colon resection: Continue to monitor patient for any signs symptoms of recurrent diverticulitis or issues related to bowel function. ADL dysfunction: OT will work on improving ability to perform ADLs (including assistive devices) to increase independence and decrease caregiver burden and improve functional transfers and mobility training. Difficulty walking: PT will work on gait training and proper use of assistive devices and advance as appropriate to use of stairs and outside ambulation on uneven surfaces. Unsteadiness on feet: PT will work on improving static and dynamic sitting and standing balance as well as proper use of assistive devices to decrease risk of falls. Abnormality of gait: PT will work to improve safety and efficiency of gait through neuromotor training and gait training along with instruction on proper use of assistive devices. Muscle weakness: PT & OT will work on strengthening exercises to improve functional strength including mixture of closed and open kinetic chain exercises. Debility: PT & OT will work on improving overall functional status to improve participation with ADLs, mobility and social involvement. Fatigue: PT & OT will work on improving endurance through aerobic exercises and therapeutic activity while monitoring patients tolerance for activity and vital signs as needed. DVT ppx: Lovenox Pain: Continue physical modalities in therapy and pain medications as needed to achieve functional pain control. Sleep: Monitor and address as needed. Bowel: Monitor and address as needed. Appetite: Monitor and address as needed. Discharge planning: Pending therapy progress and care plan meeting. Will continue discussion with therapy team, SW, patient and family. Pending patient's continued progress, will look to discharge him later next week or possibly early the week after. Still undetermined as of now if the patient will be able to go home with only a rolling walker, have instructed therapy to monitor the patient's ability and to challenge him to perform MR ADLs from a standing position utilizing a walker and not utilizing wheelchair and will make a decision as we get closer to discharge. Restrictions/ Precautions: Falls, neuro deficits WB status: FWB Functional Hx: ADLs: Independent Cognition: Independent Mobility: No AD Barriers to Discharge: Decreased mobility and ability to perform self care, balance deficits, weakness Estimated Length of Stay: 1421 days Discharge Destination: Home with family
[2021-09-20] MEDS ORDERED: INSULIN NPH, HUMAN 100 UNIT/1 ML SUB-Q SCH (10:30)
[2021-09-20] MEDS: ASPIRIN EC 81 MG TAB PO SCH (10:45)
[2021-09-20] MEDS: GABAPENTIN 300 MG CAP PO SCH ×2 (11:28→21:18)
[2021-09-20] MEDS: SPIRONOLACTONE 25 MG TAB PO SCH (11:28)
[2021-09-20] MEDS: CLOPIDOGREL 75 MG TAB PO SCH (11:28)
[2021-09-20] MEDS: carvediloL 25 MG TAB PO SCH ×2 (11:29→21:19)
[2021-09-20] MEDS: LISINOPRIL 40 MG TAB PO SCH (11:29)
[2021-09-20] MEDS: DOCUSATE SODIUM 100 MG CAP PO SCH ×2 (11:29→21:18)
[2021-09-20] MEDS: TAMSULOSIN 0.4 MG CAP PO SCH (12:17)
[2021-09-20] MEDS: CYCLOBENZAPRINE 10 MG TAB PO PRN (21:18)
[2021-09-21] MEDS: LEVOTHYROXINE 150 MCG TAB PO SCH (06:53)
[2021-09-21] MEDS: cloNIDine 0.1 MG TAB PO SCH ×3 (06:55→22:34)
[2021-09-21] MEDS: INSULIN REGULAR, HUMAN 100 UNITS/1 ML SUB-Q SCH ×7 (07:14→22:29)
[2021-09-21] MEDS: INSULIN NPH, HUMAN 100 UNIT/1 ML SUB-Q SCH ×2 (08:52→18:05)
[2021-09-21 09:46] LABS: BUN/Creatinine Ratio 20; Blood Urea Nitrogen 22 mg/dL (9-20); Calcium 8.5 mg/dL (8.4-10.2); Hemolysis Index 31
[2021-09-21] MEDS: LISINOPRIL 40 MG TAB PO SCH (10:25)
[2021-09-21] MEDS: carvediloL 25 MG TAB PO SCH ×2 (12:44→22:28)
--- NOTE | 2021-09-21 12:44 | Progress Note ---
Subjective Date of service: 09/21/21 Principal diagnosis: CVA Interval history: 71-year-old male who recently had a fairly uneventful annual physical exam and later woke up at home unable to walk and feeling dizzy. Patient stated that he considered this to likely be a sinus infection and stayed in bed for a couple of days, however with no relief from his symptoms he opted to seek medical atte ntion at a local ER where he was diagnosed with a CVA. CT head showed hypoattenuation in the left cerebellum, follow-up MRI showed an acute/subacute infarct in the left cerebellar hemisphere with a tiny hemorrhage. CTA head and neck showed diminished flow within left cerebellar branches, 60% stenosis involving the mid cervical left ICA, involving left cerebellar infarct. Patient was seen by neurology who recommended aspirin and Plavix for 90 days followed by aspirin only regimen. However upon speaking with the patient this morning it seems that he has been taking Plavix for quite some time due to cardiac and peripheral stent placement. Will look to have patient follow-up with cardiology after discharge so that they can discuss further with the patient and or neurology preference of continuing aspirin 81 mg or Plavix. After the patient was medically stabilized they were transferred for further rehabilitation. All available medical records have been reviewed. Plan of care was discussed with patient. Interval History: Patient is participating in therapy and making reasonable progress. Taking rest breaks as needed. +BM. Denies pain, palpitations, dyspnea, cough, or joint p ain. Patient did admit to being nauseous but is not vomiting. Reminded him that he does have medications available, dizziness is still present to some degree but has reduced and this may be playing into the nausea as well as the erratic blood sugars, patient is finally having bowel movements. CVA: Neurologically stable, patient continues to have balance deficits, but states vertigo and dizziness has improved over the last couple of days. Continue to monitor for shoulder-hand syndrome, post stroke depression, secondary CVA or recrudescence. Continue secondary stroke prevention and stroke education. Epistaxis: Resumed aspirin and utilize SCDs for DVT prophylaxis. Monitor for any further signs of bleeding. Patient should be able to tolerate aspirin/Plavix combination with Lovenox being removed. Hypertension: Blood pressures improving but remains variable and is not fully normalized. We will continue to monitor on the patient's medications that he is currently on and adjust medications as needed for normotension while avoiding hypotension. BPH: Clinically diagnosed based on patient's history. May also be playing a part of urine retention which is exacerbating acute kidney injury. Will start Flomax and monitor for improvement in renal function prior to giving more fluids or further work-up. Diabetes: Patient had diabetes starting about 20 years ago which sounds con sistent with type 2 diabetes and he was eventually transitioned to insulin. At that point the patient says he was converted to type 1 diabetes. Patient also says that he has been seen by an fitness centre manager who is telling him his kidney pancreas no longer works and he has been told that he is type I diabetic currently (may be type 1.5). At any rate, it seems that the patient is type 2 diabetes with a decrease in function of his pancreas. Spoke with him and due to his decreased oral intake we will slowly elevate his insulin based on his glucose numbers. Once he returns home to his normal diet he may resume his normal doses of medications. Would recommend that he follow-up with an endocri nologist for clarification. Glucose levels are improving with higher dose of insulin. Monitor and adjust as needed Vertigo: This is improved slightly since the patient's admission. Improving, meclizine available as needed Acute kidney injury: Variable improvement, continue to monitor BMP regularly, improved today but will give another liter of fluids. We will continue to monitor renal function while the patient is here and address as needed. Persistent hiccups: Resolved after a short course of Thorazine. Monitor for any further issues. Constipation: Monitor bowel movement for regularity and adjust medications as needed. CAD: Continue antiplatelets, patient denies any signs of chest pain. Recommend patient follow-up with attendance secretary and neurologist for consideration of continu ing either Plavix or aspirin as patient was on Plavix prior to the stroke. ADL mobility dysfunction: Continue therapy in order to improve patient's ability to ambulate and improve his independence. All records, vitals, labs and medications were reviewed. No other issues per patient, nursing or therapy. Objective - Exam Narrative Exam: MUSCULOSKELETAL SPECIALTY EXAM CONSTITUTIONAL: Well developed, well nourished, appropriately groomed, obese. RIGHT hand dominant. RESPIRATORY: Clear to auscultation bilaterally, no increased work of breathing CARDIOVASCULAR: Regular Rate/ Rhythm, no swelling, edema or tenderness in BUE or BLE. All extremities warm. GI: + bowel sounds, soft, NTTP, nondistended. INTEGUMENTARY: Normal, no lesion, rash, masses or bruising noted in extremities. MUSCULOSKELETAL: BUE and BLE normal without defect, crepitus, subluxation, effusion, arthritic changes or TTP. R 5 /5 L 4 /5 ROM within normal limits Tone within normal limits NEURO: CN III, IV, : EOMI with some nystagmus on lateral gaze which is improved Sensation intact in all extremities without extinction. No tremor noted in 4 extremities. Naming and repetition intact. Follows 2 step commands. Aphasia not appreciated Dysarthria not appreciated Dysphagia not appreciated Neglect not appreciated POSTURE and GAIT: Sitting posture good. Balance and gait poor to fair with ambulation utilizing a rolling walker. PSYCH: Alert, oriented x3, affect appears euthymic. Insight appears intact. - Constitutional Vitals: Vital Signs - 12hr 09/21/21 09/21/21 09/21/21 06:55 08:33 08:53 Temperature 98.0 F Pulse Rate 57 L 68 Respiratory 20 Rate Blood Pressure 150/63 171/69 O2 Sat by Pulse 95 98 Oximetry - Allied health notes Allied health notes reviewed: nursing, PT, OT FIMS assessment as documented by PT/OT/ST: Locomotion- walk/wheelchair Ambulation Distance 5 - Labs CBC & Chem 7: 09/20/21 06:58 09/21/21 08:35 Labs: Laboratory Results - last 72 hr 09/18/21 09/18/21 09/18/21 12:45 17:38 21:14 WBC RBC Hgb Hct MCV MCH MCHC RDW Plt Count Sodium Potassium Chloride Carbon Dioxide Anion Gap BUN Creatinine Estimated GFR BUN/Creatinine Ratio Glucose POC Glucose 307 H 305 H 293 H Calcium 09/19/21 09/19/21 09/19/21 08:26 11:04 11:04 WBC 9.0 RBC 4.45 Hgb 15.2 Hct 43.2 MCV 97 H MCH 34 H MCHC 35 H RDW 14.1 Plt Count 190 Sodium 132 L Potassium 4.6 Chloride 95.6 L Carbon Dioxide 22 Anion Gap 19 BUN 25 H Creatinine 1.2 Estimated GFR > 60 BUN/Creatinine Ratio 21 Glucose 292 H POC Glucose 261 H Calcium 9.2 09/19/21 09/19/21 09/19/21 12:40 17:33 20:43 WBC RBC Hgb Hct MCV MCH MCHC RDW Plt Count Sodium Potassium Chloride Carbon Dioxide Anion Gap BUN Creatinine Estimated GFR BUN/Creatinine Ratio Glucose POC Glucose 324 H 254 H 285 H Calcium 09/20/21 09/20/21 09/20/21 06:58 06:58 08:29 WBC 8.2 RBC 4.45 Hgb 14.8 Hct 43.4 MCV 98 H MCH 33 H MCHC 34 RDW 14.3 Plt Count 175 Sodium 134 L Potassium 4.3 Chloride 97.3 L Carbon Dioxide 26 Anion Gap 15 BUN 23 H Creatinine 1.4 H Estimated GFR 50 BUN/Creatinine Ratio 16 Glucose 229 H POC Glucose 268 H Calcium 8.9 09/20/21 09/20/21 09/20/21 11:25 16:35 20:29 WBC RBC Hgb Hct MCV MCH MCHC RDW Plt Count Sodium Potassium Chloride Carbon Dioxide Anion Gap BUN Creatinine Estimated GFR BUN/Creatinine Ratio Glucose POC Glucose 255 H 171 H 243 H Calcium 09/21/21 09/21/21 09/21/21 07:07 08:31 08:35 WBC RBC Hgb Hct MCV MCH MCHC RDW Plt Count Sodium 132 L Potassium 4.2 Chloride 97.4 L Carbon Dioxide 22 Anion Gap 17 BUN 22 H Creatinine 1.1 Estimated GFR > 60 BUN/Creatinine Ratio 20 Glucose 322 H POC Glucose 182 H 279 H Calcium 8.5 09/21/21 12:29 WBC RBC Hgb Hct MCV MCH MCHC RDW Plt Count Sodium Potassium Chloride Carbon Dioxide Anion Gap BUN Creatinine Estimated GFR BUN/Creatinine Ratio Glucose POC Glucose 141 H Calcium Assessment and Plan CVA: Continue Secondary Stroke Prevention (Antithrombotic, Statin (Goal LDL-C <70), BP control (Goal <130/80), GLU control (Goal A1c <7), and lifestyle modification). Monitor for recurrent stroke or post-stroke recrudescence. Continue neuromotor therapy as above. Family training when available. Monitor for post stroke depression, cognitive deficits, seizure, dysphagia, aphasia, shoulder hand syndrome, sensory deficits, spasticity, bowel/bladder deficits, sleep disturbance, vision deficits and DVT. Prognosis for recovery and Secondary Stroke Prevention discussed. Follow up with Neurology. No driving until cleared by Neurologist. Patient will need to discuss with attendance secretary and neurologist preference between the two of continuing on just aspirin versus continuing Plavix. Patient previously taking Plavix per cardiology. Hypertension: Continue medications and adjust for normotension. Goal blood pressure less than 130/80 while avoiding hypotension. Blood pressure values have been variable since admission. Will monitor for another day or so and look to increase clonidine Diabetes: Patient taking Novolin in 40 units twice daily and Novolin R 40 units twice daily at home. Question as to whether the patient has type 2 or type 1.5 diabetes. At any rate we have increased his basal insulin and are monitoring n eed for sliding scale insulin and have also added a flat rate of Novolin R in addition to the sliding scale to better control his glucose. We will continue to monitor and adjust as needed in order to hopefully obtain normoglycemia. Vertigo: Symptomatic treatment along with vestibular rehab to hopefully improve patient's symptoms from the CVA. Monitor patient for improvement as this does place him in a higher fall risk category. Seems to be improving. Acute kidney injury: No mention of chronic kidney disease at outside hospital notes are from the patient. Renal function was deteriorating slowly at outside hospital prior to transfer. We will start gentle IV fluids and monitor for improvement. BPH: Diagnosed clinically based on symptoms and history. Will start Flomax and monitor for improvement and possible improvement in renal function as well. Persistent hiccups: Treated at outside hospital with Thorazine, continue treatment here for a couple of days with marked improvement and have since discontinued Thorazine. Will monitor for any return. Constipation: Medications ordered for stool softener as well as suppositories. Monitor bowel movements and adjust medications as needed for regularity. CAD: Continue to monitor for any signs or symptoms of chest pain or cardiac ab normalities. Will consider placing the patient on telemetry monitoring if warranted. Rest breaks as needed during therapy with the immediate notification of patient experiences any chest pain. Continue antiplatelet therapy and follow-up with cardiology so discussion can be had as to plan going forward to continue antiplatelets. Hypothyroidism: Continue levothyroxine and follow-up as outpatient with PCP. Prior diverticulitis with colon resection: Continue to monitor patient for any signs symptoms of recurrent diverticulitis or issues related to bowel function. ADL dysfunction: OT will work on improving ability to perform ADLs (including assistive devices) to increase independence and decrease caregiver burden and improve functional transfers and mobility training. Difficulty walking: PT will work on gait training and proper use of assistive devices and advance as appropriate to use of stairs and outside ambulation on uneven surfaces. Unsteadiness on feet: PT will work on improving static and dynamic sitting and standing balance as well as proper use of assistive devices to decrease risk of falls. Abnormality of gait: PT will work to improve safety and efficiency of gait thr ough neuromotor training and gait training along with instruction on proper use of assistive devices. Muscle weakness: PT & OT will work on strengthening exercises to improve functional strength including mixture of closed and open kinetic chain exercises. Debility: PT & OT will work on improving overall functional status to improve participation with ADLs, mobility and social involvement. Fatigue: PT & OT will work on improving endurance through aerobic exercises and therapeutic activity while monitoring patients tolerance for activity and vital signs as needed. DVT ppx: Lovenox Pain: Continue physical modalities in therapy and pain medications as needed to achieve functional pain control. Sleep: Monitor and address as needed. Bowel: Monitor and address as needed. Appetite: Monitor and address as needed. Discharge planning: Pending therapy progress and care plan meeting. Will continue discussion with therapy team, SW, patient and family. Pending patient's continued progress, will look to discharge him later next week or possibly early the week after. Still undetermined as of now if the patient will be able to go home with only a rolling walker, have instructed therapy to monitor the patient's ability and to challenge him to perform MR ADLs from a standing position utilizing a walker and not utilizing wheelchair and will make a decision as we get closer to discharge. Restrictions/ Precautions: Falls, neuro deficits WB status: FWB Functional Hx: ADLs: Independent Cognition: Independent Mobility: No AD Barriers to Discharge: Decreased mobility and ability to perform self care, balance deficits, weakness Estimated Length of Stay: 1421 days Discharge Destination: Home with family
[2021-09-21] MEDS: DOCUSATE SODIUM 100 MG CAP PO SCH ×2 (12:45→22:29)
[2021-09-21] MEDS: GABAPENTIN 300 MG CAP PO SCH ×2 (12:46→22:28)
[2021-09-21] MEDS: ASPIRIN EC 81 MG TAB PO SCH (12:47)
[2021-09-21] MEDS: CLOPIDOGREL 75 MG TAB PO SCH (12:47)
[2021-09-21] MEDS: SPIRONOLACTONE 25 MG TAB PO SCH (12:47)
[2021-09-21] MEDS: TAMSULOSIN 0.4 MG CAP PO SCH (12:47)
[2021-09-21] MEDS ORDERED: SODIUM CHLORIDE 0.9% 1000 ML 1,000 ML IV SCH (14:00)
[2021-09-21] MEDS: CYCLOBENZAPRINE 10 MG TAB PO PRN (22:28)
[2021-09-22] MEDS: LEVOTHYROXINE 150 MCG TAB PO SCH (05:38)
[2021-09-22] MEDS: cloNIDine 0.1 MG TAB PO SCH ×3 (05:40→21:20)
[2021-09-22] MEDS: INSULIN REGULAR, HUMAN 100 UNITS/1 ML SUB-Q SCH ×7 (07:55→21:05)
[2021-09-22] MEDS: INSULIN NPH, HUMAN 100 UNIT/1 ML SUB-Q SCH ×2 (08:39→17:30)
[2021-09-22] MEDS: MECLIZINE 25 MG TAB PO PRN (08:39)
[2021-09-22 09:52] LABS: Hematocrit 42.6 % (35.5-45.6); Hemoglobin 14.8 gm/dl (11.8-15.2); Mean Corpuscular HGB Conc 35 % (32-34); Mean Corpuscular Volume 99 fl (84-94); Platelet Count 163 K/mm3 (140-440); Red Blood Count 4.32 M/mm3 (3.65-5.03); Red Cell Distribution Width 14.2 % (13.2-15.2)
[2021-09-22] MEDS: GABAPENTIN 300 MG CAP PO SCH ×2 (10:00→21:03)
[2021-09-22] MEDS: DOCUSATE SODIUM 100 MG CAP PO SCH ×2 (10:00→21:03)
[2021-09-22] MEDS: LISINOPRIL 40 MG TAB PO SCH (10:00)
[2021-09-22] MEDS: SPIRONOLACTONE 25 MG TAB PO SCH (10:00)
[2021-09-22] MEDS: CLOPIDOGREL 75 MG TAB PO SCH (10:00)
[2021-09-22] MEDS: ASPIRIN EC 81 MG TAB PO SCH (10:00)
[2021-09-22] MEDS: carvediloL 25 MG TAB PO SCH (10:00)
[2021-09-22] MEDS: TAMSULOSIN 0.4 MG CAP PO SCH (10:00)
[2021-09-22 10:16] LABS: BUN/Creatinine Ratio 19; Blood Urea Nitrogen 23 mg/dL (9-20); Calcium 8.7 mg/dL (8.4-10.2); Hemolysis Index 8
--- NOTE | 2021-09-22 10:51 | Progress Note ---
Subjective Date of service: 09/22/21 Principal diagnosis: CVA Interval history: 71-year-old male who recently had a fairly uneventful annual physical exam and later woke up at home unable to walk and feeling dizzy. Patient stated that he considered this to likely be a sinus infection and stayed in bed for a couple of days, however with no relief from his symptoms he opted to seek medical atte ntion at a local ER where he was diagnosed with a CVA. CT head showed hypoattenuation in the left cerebellum, follow-up MRI showed an acute/subacute infarct in the left cerebellar hemisphere with a tiny hemorrhage. CTA head and neck showed diminished flow within left cerebellar branches, 60% stenosis involving the mid cervical left ICA, involving left cerebellar infarct. Patient was seen by neurology who recommended aspirin and Plavix for 90 days followed by aspirin only regimen. However upon speaking with the patient this morning it seems that he has been taking Plavix for quite some time due to cardiac and peripheral stent placement. Will look to have patient follow-up with cardiology after discharge so that they can discuss further with the patient and or neurology preference of continuing aspirin 81 mg or Plavix. After the patient was medically stabilized they were transferred for further rehabilitation. All available medical records have been reviewed. Plan of care was discussed with patient. Interval History: Patient is participating in therapy and making reasonable progress. Taking rest breaks as needed. +BM. Denies pain, palpitations, dyspnea, cough, or joint p ain. Patient did admit to being nauseous but is not vomiting. Patient did not sleep well last night and states that he only had about 3 hours of sleep. Is a little tired this morning EMR was down for a good portion of yesterday and I could not fully review medications however it does appear that clonidine has been held due to heart rate in the 50s. Patient is also on Coreg but this was not held. Have adjusted the orders so that hopefully the clonidine is not held for heart rate greater than 50 and the Coreg can be held for heart rate less than 50. Have also decreased the dose of Coreg. Patient does have blood pressure issues and a recent stroke and I do not want his blood pressure greater than 140. CVA: Neurologically stable, patient continues to have balance deficits, but states vertigo and dizziness has improved over the last couple of days. Continue to monitor for shoulder-hand syndrome, post stroke depression, secondary CVA or recrudescence. Continue secondary stroke prevention and stroke education. Epistaxis: Resumed aspirin and utilize SCDs for DVT prophylaxis. Monitor for any further signs of bleeding. Patient should be able to tolerate aspirin/Plavix combination with Lovenox being removed. Hypertension: Blood pressure remains greater than 150 most of the time. Patient has been mildly bradycardic at times which recently has prompted holding of clonidine. Have adjusted orders and reduced dose of Coreg. Would prefer that clonidine is not held as this can cause reflexive hypertension. We will continue to monitor on the patient's medications that he is currently on and adjust medications as needed for normotension while avoiding hypotension. BPH: Clinically diagnosed based on patient's history. May also be playing a part of urine retention which is exacerbating acute kidney injury. Will start Flomax and monitor for improvement in renal function prior to giving more fluids or further work-up. Diabetes: Patient had diabetes starting about 20 years ago which sounds consistent with type 2 diabetes and he was eventually transitioned to insulin. At that point the patient says he was converted to type 1 diabetes. 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 At any rate, it seems that the patient is type 2 diabetes with a decrease in function of his pancreas. Spoke with him and due to his decreased oral intake we will slowly elevate his insulin based on his glucose numbers. Once he returns home to his normal diet he may resume his normal doses of medications. Would recommend that he follow-up with an hospital unit clerk for clarification. Glucose levels are improving with higher dos e of insulin. Monitor and adjust as needed Vertigo: This is improved slightly since the patient's admission. Improving, meclizine available as needed Acute kidney injury: Variable improvement, continue to monitor BMP regularly, improved today but will give another liter of fluids. We will continue to monitor renal function while the patient is here and address as needed. Persistent hiccups: Resolved after a short course of Thorazine. Monitor for any further issues. Constipation: Monitor bowel movement for regularity and adjust medications as needed. CAD: Continue antiplatelets, patient denies any signs of chest pain. Recommend patient follow-up with gum machine operator and neurologist for consideration of continuing either Plavix or aspirin as patient was on Plavix prior to the stroke . ADL mobility dysfunction: Continue therapy in order to improve patient's ability to ambulate and improve his independence. All records, vitals, labs and medications were reviewed. No other issues per patient, nursing or therapy. Objective - Exam Narrative Exam: MUSCULOSKELETAL SPECIALTY EXAM CONSTITUTIONAL: Well developed, well nourished, appropriately groomed, obese. RIGHT hand dominant. RESPIRATORY: Clear to auscultation bilaterally, no increased work of breathing CARDIOVASCULAR: Regular Rate/ Rhythm, no swelling, edema or tenderness in BUE or BLE. All extremities warm. GI: + bowel sounds, soft, NTTP, nondistended. INTEGUMENTARY: Normal, no lesion, rash, masses or bruising noted in extremities. MUSCULOSKELETAL: BUE and BLE normal without defect, crepitus, subluxation, effusion, arthritic changes or TTP. R 5 /5 L 4 /5 ROM within normal limits Tone within normal limits NEURO: CN III, IV, : EOMI with some nystagmus on lateral gaze which is improved Sensation intact in all extremities without extinction. No tremor noted in 4 extremities. Naming and repetition intact. Follows 2 step commands. Aphasia not appreciated Dysarthria not appreciated Dysphagia not appreciated Neglect not appreciated POSTURE and GAIT: Sitting posture good. Balance and gait fair with ambulation utilizing a rolling walker. PSYCH: Alert, oriented x3, affect appears euthymic. Insight appears intact. - Constitutional Vitals: Vital Signs - 12hr 09/22/21 09/22/21 09/22/21 05:36 05:40 08:08 Temperature 98.1 F Pulse Rate 59 L 59 L Respiratory 20 Rate Blood Pressure 149/65 149/65 O2 Sat by Pulse 96 96 Oximetry 09/22/21 08:16 Temperature 97.8 F Pulse Rate 63 Respiratory 18 Rate Blood Pressure 154/65 O2 Sat by Pulse 96 Oximetry - Allied health notes Allied health notes reviewed: nursing, PT, OT FIMS assessment as documented by PT/OT/ST: Locomotion- walk/wheelchair Ambulation Distance 5 - Labs CBC & Chem 7: 09/22/21 09:16 09/22/21 09:16 Labs: Laboratory Results - last 72 hr 09/19/21 09/19/21 09/19/21 11:04 11:04 12:40 WBC 9.0 RBC 4.45 Hgb 15.2 Hct 43.2 MCV 97 H MCH 34 H MCHC 35 H RDW 14.1 Plt Count 190 Sodium 132 L Potassium 4.6 Chloride 95.6 L Carbon Dioxide 22 Anion Gap 19 BUN 25 H Creatinine 1.2 Estimated GFR > 60 BUN/Creatinine Ratio 21 Glucose 292 H POC Glucose 324 H Calcium 9.2 09/19/21 09/19/21 09/20/21 17:33 20:43 06:58 WBC RBC Hgb Hct MCV MCH MCHC RDW Plt Count Sodium 134 L Potassium 4.3 Chloride 97.3 L Carbon Dioxide 26 Anion Gap 15 BUN 23 H Creatinine 1.4 H Estimated GFR 50 BUN/Creatinine Ratio 16 Glucose 229 H POC Glucose 254 H 285 H Calcium 8.9 09/20/21 09/20/21 09/20/21 06:58 08:29 11:25 WBC 8.2 RBC 4.45 Hgb 14.8 Hct 43.4 MCV 98 H MCH 33 H MCHC 34 RDW 14.3 Plt Count 175 Sodium Potassium Chloride Carbon Dioxide Anion Gap BUN Creatinine Estimated GFR BUN/Creatinine Ratio Glucose POC Glucose 268 H 255 H Calcium 09/20/21 09/20/21 09/21/21 16:35 20:29 07:07 WBC RBC Hgb Hct MCV MCH MCHC RDW Plt Count Sodium Potassium Chloride Carbon Dioxide Anion Gap BUN Creatinine Estimated GFR BUN/Creatinine Ratio Glucose POC Glucose 171 H 243 H 182 H Calcium 09/21/21 09/21/21 09/21/21 08:31 08:35 12:29 WBC RBC Hgb Hct MCV MCH MCHC RDW Plt Count Sodium 132 L Potassium 4.2 Chloride 97.4 L Carbon Dioxide 22 Anion Gap 17 BUN 22 H Creatinine 1.1 Estimated GFR > 60 BUN/Creatinine Ratio 20 Glucose 322 H POC Glucose 279 H 141 H Calcium 8.5 09/21/21 09/21/21 09/22/21 15:06 21:26 07:46 WBC RBC Hgb Hct MCV MCH MCHC RDW Plt Count Sodium Potassium Chloride Carbon Dioxide Anion Gap BUN Creatinine Estimated GFR BUN/Creatinine Ratio Glucose POC Glucose 218 H 161 H 150 H Calcium 09/22/21 09/22/21 09:16 09:16 WBC 8.1 RBC 4.32 Hgb 14.8 Hct 42.6 MCV 99 H MCH 34 H MCHC 35 H RDW 14.2 Plt Count 163 Sodium 132 L Potassium 4.4 Chloride 95.0 L Carbon Dioxide 27 Anion Gap 14 BUN 23 H Creatinine 1.2 Estimated GFR > 60 BUN/Creatinine Ratio 19 Glucose 311 H POC Glucose Calcium 8.7 Assessment and Plan CVA: Continue Secondary Stroke Prevention (Antithrombotic, Statin (Goal LDL-C <70), BP control (Goal <130/80), GLU control (Goal A1c <7), and lifestyle modification). Monitor for recurrent stroke or post-stroke recrudescence. Continue neuromotor therapy as above. Family training when available. Monitor for post stroke depression, cognitive deficits, seizure, dysphagia, aphasia, shoulder hand syndrome, sensory deficits, spasticity, bowel/bladder deficits, sleep disturbance, vision deficits and DVT. Prognosis for recovery and Secondary Stroke Prevention discussed. Follow up with Neurology. No driving until cleared by Neurologist. Patient will need to discuss with gum machine operator and neurologist preference between the two of continuing on just aspirin versus continuing Plavix. Patient previously taking Plavix per cardiology. Hypertension: Continue medications and adjust for normotension. Goal blood pressure less than 130/80 while avoiding hypotension. Blood pressure values have been variable since admission. Medications being held, have addressed with nursing and placed hold orders. Diabetes: Patient taking Novolin in 40 units twice daily and Novolin R 40 units twice daily at home. Question as to whether the patient has type 2 or type 1.5 diabetes. At any rate we have increased his basal insulin and are monitoring need for sliding scale insulin and have also added a flat rate of Novolin R in addition to the sliding scale to better control his glucose. We will continue to monitor and adjust as needed in order to hopefully obtain normoglycemia. Vertigo: Symptomatic treatment along with vestibular rehab to hopefully improve patient's symptoms from the CVA. Monitor patient for improvement as this does place him in a higher fall risk category. Seems to be improving. Acute kidney injury: No mention of chronic kidney disease at outside hospital notes are from the patient. Renal function was deteriorating slowly at outside hospital prior to transfer. We will start gentle IV fluids and monitor for improvement. BPH: Diagnosed clinically based on symptoms and history. Will start Flomax and monitor for improvement and possible improvement in renal function as well. Persistent hiccups: Treated at outside hospital with Thorazine, continue treatment here for a couple of days with marked improvement and have since discontinued Thorazine. Will monitor for any return. Constipation: Medications ordered for stool softener as well as suppositories. Monitor bowel movements and adjust medications as needed for regularity. CAD: Continue to monitor for any signs or symptoms of chest pain or cardiac abnormalities. Will consider placing the patient on telemetry monitoring if warranted. Rest breaks as needed during therapy with the immediate notification of patient experiences any chest pain. Continue antiplatelet therapy and follow-up with cardiology so discussion can be had as to plan going forward to continue antiplatelets. Hypothyroidism: Continue levothyroxine and follow-up as outpatient with PCP. Prior diverticulitis with colon resection: Continue to monitor patient for any signs symptoms of recurrent diverticulitis or issues related to bowel function. ADL dysfunction: OT will work on improving ability to perform ADLs (including assistive devices) to increase independence and decrease caregiver burden and improve functional transfers and mobility training. Difficulty walking: PT will work on gait training and proper use of assistive devices and advance as appropriate to use of stairs and outside ambulation on uneven surfaces. Unsteadiness on feet: PT will work on improving static and dynamic sitting and standing balance as well as proper use of assistive devices to decrease risk of falls. Abnormality of gait: PT will work to improve safety and efficiency of gait through neuromotor training and gait training along with instruction on proper use of assistive devices. Muscle weakness: PT & OT will work on strengthening exercises to improve functional strength including mixture of closed and open kinetic chain exercises. Debility: PT & OT will work on improving overall functional status to improve participation with ADLs, mobility and social involvement. Fatigue: PT & OT will work on improving endurance through aerobic exercises and therapeutic activity while monitoring patients tolerance for activity and vital signs as needed. DVT ppx: Lovenox Pain: Continue physical modalities in therapy and pain medications as needed to achieve functional pain control. Sleep: Monitor and address as needed. Bowel: Monitor and address as needed. Appetite: Monitor and address as needed. Discharge planning: Pending therapy progress and care plan meeting. Will con tinue discussion with therapy team, SW, patient and family. Pending patient's continued progress, will look to discharge him later next week or possibly early the week after. Still undetermined as of now if the patient will be able to go home with only a rolling walker, have instructed therapy to monitor the patient's ability and to challenge him to perform MR ADLs from a standing position utilizing a walker and not utilizing wheelchair and will make a decision as we get closer to discharge. Restrictions/ Precautions: Falls, neuro deficits WB status: FWB Functional Hx: ADLs: Independent Cognition: Independent Mobility: No AD Barriers to Discharge: Decreased mobility and ability to perform self care, balance deficits, weakness Estimated Length of Stay: 1421 days Discharge Destination: Home with family
[2021-09-22] MEDS: ONDANSETRON 4 MG/2 ML INJ IV PRN (11:24)
[2021-09-22] MEDS: carvediloL 12.5 MG TAB PO SCH (21:03)
[2021-09-23] MEDS: LEVOTHYROXINE 150 MCG TAB PO SCH (06:28)
[2021-09-23] MEDS: cloNIDine 0.1 MG TAB PO SCH ×3 (06:29→21:35)
[2021-09-23 07:47] LABS: Calcium 9.2 mg/dL (8.4-10.2)
[2021-09-23] MEDS: INSULIN NPH, HUMAN 100 UNIT/1 ML SUB-Q SCH ×2 (08:35→18:00)
[2021-09-23] MEDS: INSULIN REGULAR, HUMAN 100 UNITS/1 ML SUB-Q SCH ×7 (08:38→21:57)
[2021-09-23] MEDS: carvediloL 12.5 MG TAB PO SCH ×2 (12:19→21:35)
[2021-09-23] MEDS: DOCUSATE SODIUM 100 MG CAP PO SCH ×2 (12:20→21:35)
[2021-09-23] MEDS: ASPIRIN EC 81 MG TAB PO SCH (12:20)
[2021-09-23] MEDS: CLOPIDOGREL 75 MG TAB PO SCH (12:20)
[2021-09-23] MEDS: GABAPENTIN 300 MG CAP PO SCH ×2 (12:20→21:35)
[2021-09-23] MEDS: TAMSULOSIN 0.4 MG CAP PO SCH (12:20)
[2021-09-23] MEDS: LISINOPRIL 40 MG TAB PO SCH (12:20)
[2021-09-23] MEDS: SPIRONOLACTONE 25 MG TAB PO SCH (12:20)
--- NOTE | 2021-09-23 12:34 | Progress Note ---
Subjective Date of service: 09/23/21 Principal diagnosis: CVA Interval history: 71-year-old male who recently had a fairly uneventful annual physical exam and later woke up at home unable to walk and feeling dizzy. Patient stated that he considered this to likely be a sinus infection and stayed in bed for a couple of days, however with no relief from his symptoms he opted to seek medical atte ntion at a local ER where he was diagnosed with a CVA. CT head showed hypoattenuation in the left cerebellum, follow-up MRI showed an acute/subacute infarct in the left cerebellar hemisphere with a tiny hemorrhage. CTA head and neck showed diminished flow within left cerebellar branches, 60% stenosis involving the mid cervical left ICA, involving left cerebellar infarct. Patient was seen by neurology who recommended aspirin and Plavix for 90 days followed by aspirin only regimen. However upon speaking with the patient this morning it seems that he has been taking Plavix for quite some time due to cardiac and peripheral stent placement. Will look to have patient follow-up with cardiology after discharge so that they can discuss further with the patient and or neurology preference of continuing aspirin 81 mg or Plavix. After the patient was medically stabilized they were transferred for further rehabilitation. All available medical records have been reviewed. Plan of care was discussed with patient. Interval History: Patient is participating in therapy and making reasonable progress. Taking rest breaks as needed. +BM. Denies pain, palpitations, dyspnea, cough, or joint p ain. Patient made yesterday he did not sleep well and was having nausea with retching but no actual vomiting. He was unable to participate in therapy due to this and therapy did check with him multiple times throughout the day. Towards the end of the evening the patient states that he ended up feeling much better. He performed in therapy very well today and will continue working towards goals CVA: Neurologically stable, patient continues to have balance deficits, but states vertigo and dizziness has improved over the last couple of days. Continue to monitor for shoulder-hand syndrome, post stroke depression, secondary CVA or recrudescence. Continue secondary stroke prevention and stroke education. Epistaxis: Resumed aspirin and utilize SCDs for DVT prophylaxis. Monitor for any further signs of bleeding. Patient should be able to tolerate aspirin/Plavix combination with Lovenox being removed. Hypertension: Blood pressure remains greater than 150 most of the time. Continue to monitor after medication changes yesterday which would have taken effect primarily today. We will watch closely over the weekend with adjustments as needed and look to try and stabilize patient for discharge next week based on a steady regimen of blood pressure medications. BPH: Clinically diagnosed based on patient's history. May also be playing a part of urine retention which is exacerbating acute kidney injury. Will start Flomax and monitor for improvement in renal function prior to giving more fluids or further work-up. Diabetes: Patient had diabetes starting about 20 years ago which sounds consistent with type 2 diabetes and he was eventually transitioned to insulin. At that point the patient says he was converted to type 1 diabetes. 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 At any rate, it seems that the patient is type 2 diabetes with a decrease in function of his pancreas. Spoke with him and due to his decreased oral intake we will slowly elevate his insulin based on his glucose numbers. Once he returns home to his normal diet he may resume his normal doses of medications. Would recommend that he follow-up with an medicaid specialist for clarification. Glucose levels are improving with higher dose of insulin. Monitor and adjust as needed Vertigo: This is improved slightly since the patient's admission. Improving, meclizine available as needed Acute kidney injury: Variable improvement, continue to monitor BMP regularly, improved today but will give another liter of fluids. We will continue to monitor renal function while the patient is here and address as needed. Creatinine elevating again, have decreased spironolactone dose and hope to see an improvement. Will possibly give IV fluids again this weekend. Persistent hiccups: Resolved after a short course of Thorazine. Monitor for any further issues. Constipation: Monitor bowel movement for regularity and adjust medications as needed. CAD: Continue antiplatelets, patient denies any signs of chest pain. Recommend patient follow-up with professor of lat[place] american studies and neurologist for consideration of continuing either Plavix or aspirin as patient was on Plavix prior to the stroke. ADL mobility dysfunction: Continue therapy in order to improve patient's ability to ambulate and improve his independence. All records, vitals, labs and medications were reviewed. No other issues per patient, nursing or therapy. Objective - Exam Narrative Exam: MUSCULOSKELETAL SPECIALTY EXAM CONSTITUTIONAL: Well developed, well nourished, appropriately groomed, obese. RIGHT hand dominant. RESPIRATORY: Clear to auscultation bilaterally, no increased work of breathing CARDIOVASCULAR: Regular Rate/ Rhythm, no swelling, edema or tenderness in BUE or BLE. All extremities warm. GI: + bowel sounds, soft, NTTP, nondistended. No rebound tenderness INTEGUMENTARY: Normal, no lesion, rash, masses or bruising noted in extremities. MUSCULOSKELETAL: BUE and BLE normal without defect, crepitus, subluxation, effusion, arthritic changes or TTP. R 5 /5 L 4+ /5 ROM within normal limits Tone within normal limits NEURO: CN III, IV, : EOMI with some nystagmus on lateral gaze which is improved Sensation intact in all extremities without extinction. No tremor noted in 4 extremities. Naming and repetition intact. Follows 2 step commands. Aphasia not appreciated Dysarthria not appreciated Dysphagia not appreciated Neglect not appreciated POSTURE and GAIT: Sitting posture good. Balance and gait fair with ambulation utilizing a rolling walker. PSYCH: Alert, oriented x3, affect appears euthymic. Insight appears intact. - Constitutional Vitals: Vital Signs - 12hr 09/23/21 09/23/21 09/23/21 06:22 06:29 08:22 Temperature 98.9 F 97.5 F L Pulse Rate 59 L 59 L 60 Respiratory 16 20 Rate Blood Pressure 163/68 162/68 142/57 O2 Sat by Pulse 95 97 Oximetry 09/23/21 12:19 Temperature Pulse Rate 74 Respiratory Rate Blood Pressure O2 Sat by Pulse Oximetry - Allied health notes Allied health notes reviewed: nursing, PT, OT FIMS assessment as documented by PT/OT/ST: Locomotion- walk/wheelchair Ambulation Distance 5 - Labs CBC & Chem 7: 09/22/21 09:16 09/23/21 07:06 Labs: Laboratory Results - last 72 hr 09/20/21 09/20/21 09/21/21 16:35 20:29 07:07 WBC RBC Hgb Hct MCV MCH MCHC RDW Plt Count Sodium Potassium Chloride Carbon Dioxide Anion Gap BUN Creatinine Estimated GFR BUN/Creatinine Ratio Glucose POC Glucose 171 H 243 H 182 H Calcium 09/21/21 09/21/21 09/21/21 08:31 08:35 12:29 WBC RBC Hgb Hct MCV MCH MCHC RDW Plt Count Sodium 132 L Potassium 4.2 Chloride 97.4 L Carbon Dioxide 22 Anion Gap 17 BUN 22 H Creatinine 1.1 Estimated GFR > 60 BUN/Creatinine Ratio 20 Glucose 322 H POC Glucose 279 H 141 H Calcium 8.5 09/21/21 09/21/21 09/22/21 15:06 21:26 07:46 WBC RBC Hgb Hct MCV MCH MCHC RDW Plt Count Sodium Potassium Chloride Carbon Dioxide Anion Gap BUN Creatinine Estimated GFR BUN/Creatinine Ratio Glucose POC Glucose 218 H 161 H 150 H Calcium 09/22/21 09/22/21 09/22/21 09:16 09:16 11:26 WBC 8.1 RBC 4.32 Hgb 14.8 Hct 42.6 MCV 99 H MCH 34 H MCHC 35 H RDW 14.2 Plt Count 163 Sodium 132 L Potassium 4.4 Chloride 95.0 L Carbon Dioxide 27 Anion Gap 14 BUN 23 H Creatinine 1.2 Estimated GFR > 60 BUN/Creatinine Ratio 19 Glucose 311 H POC Glucose 336 H Calcium 8.7 09/22/21 09/22/21 09/23/21 16:26 21:01 07:06 WBC RBC Hgb Hct MCV MCH MCHC RDW Plt Count Sodium 135 L Potassium 4.9 Chloride 96.4 L Carbon Dioxide 28 Anion Gap 16 BUN 20 Creatinine 1.3 Estimated GFR 55 BUN/Creatinine Ratio 15 Glucose 180 H POC Glucose 216 H 203 H Calcium 9.2 09/23/21 08:25 WBC RBC Hgb Hct MCV MCH MCHC RDW Plt Count Sodium Potassium Chloride Carbon Dioxide Anion Gap BUN Creatinine Estimated GFR BUN/Creatinine Ratio Glucose POC Glucose 201 H Calcium Assessment and Plan CVA: Continue Secondary Stroke Prevention (Antithrombotic, Statin (Goal LDL-C <70), BP control (Goal <130/80), GLU control (Goal A1c <7), and lifestyle modification). Monitor for recurrent stroke or post-stroke recrudescence. Continue neuromotor therapy as above. Family training when available. Monitor for post stroke depression, cognitive deficits, seizure, dysphagia, aphasia, shoulder hand syndrome, sensory deficits, spasticity, bowel/bladder deficits, sleep disturbance, vision deficits and DVT. Prognosis for recovery and Secondary Stroke Prevention discussed. Follow up with Neurology. No driving until cleared by Neurologist. Patient will need to discuss with professor of lat[place] studies and neurologist preference between the two of continuing on just aspirin versus continuing Plavix. Patient previously taking Plavix per cardiology. Hypertension: Continue medications and adjust for normotension. Goal blood pressure less than 130/80 while avoiding hypotension. Blood pressure values have been variable since admission. Continue to monitor after changes and look to adjust if needed. Diabetes: Patient taking Novolin in 40 units twice daily and Novolin R 40 units twice daily at home. Question as to whether the patient has type 2 or type 1.5 diabetes. At any rate we have increased his basal insulin and are monitoring need for sliding scale insulin and have also added a flat rate of Novolin R in addition to the sliding scale to better control his glucose. We will continue to monitor and adjust as needed in order to hopefully obtain normoglycemia. Vertigo: Symptomatic treatment along with vestibular rehab to hopefully improve patient's symptoms from the CVA. Monitor patient for improvement as this does place him in a higher fall risk category. Seems to be improving. Acute kidney injury: No mention of chronic kidney disease at outside hospital notes are from the patient. Renal function was deteriorating slowly at outside hospital prior to transfer. Variable values on renal function, improves with IV fluids and then worsens over the next couple of days until IV fluids were given again. Have encouraged patient to improve p.o. intake and have started Flomax for possible urinary retention. BPH: Diagnosed clinically based on symptoms and history. Will start Flomax and monitor for improvement and possible improvement in renal function as well. Persistent hiccups: Treated at outside hospital with Thorazine, continue treatment here for a couple of days with marked improvement and have since discontinued Thorazine. Will monitor for any return. Constipation: Medications ordered for stool softener as well as suppositories. Monitor bowel movements and adjust medications as needed for regularity. CAD: Continue to monitor for any signs or symptoms of chest pain or cardiac abnormalities. Will consider placing the patient on telemetry monitoring if warranted. Rest breaks as needed during therapy with the immediate notification of patient experiences any chest pain. Continue antiplatelet therapy and follow-up with cardiology so discussion can be had as to plan going forward to continue antiplatelets. Hypothyroidism: Continue levothyroxine and follow-up as outpatient with PCP. Prior diverticulitis with colon resection: Continue to monitor patient for any signs symptoms of recurrent diverticulitis or issues related to bowel function. ADL dysfunction: OT will work on improving ability to perform ADLs (including assistive devices) to increase independence and decrease caregiver burden and improve functional transfers and mobility training. Difficulty walking: PT will work on gait training and proper use of assistive devices and advance as appropriate to use of stairs and outside ambulation on uneven surfaces. Unsteadiness on feet: PT will work on improving static and dynamic sitting and standing balance as well as proper use of assistive devices to decrease risk of falls. Abnormality of gait: PT will work to improve safety and efficiency of gait through neuromotor training and gait training along with instruction on proper use of assistive devices. Muscle weakness: PT & OT will work on strengthening exercises to improve functional strength including mixture of closed and open kinetic chain exercises. Debility: PT & OT will work on improving overall functional status to improve participation with ADLs, mobility and social involvement. Fatigue: PT & OT will work on improving endurance through aerobic exercises and therapeutic activity while monitoring patients tolerance for activity and vital signs as needed. DVT ppx: Lovenox Pain: Continue physical modalities in therapy and pain medications as needed to achieve functional pain control. Sleep: Monitor and address as needed. Bowel: Monitor and address as needed. Appetite: Monitor and address as needed. Discharge planning: Pending therapy progress and care plan meeting. Will continue discussion with therapy team, SW, patient and family. Pending patient's continued progress, will look to discharge him later next week or possibly early the week after. Still undetermined as of now if the patient will be able to go home with only a rolling walker, have instructed therapy to monitor the patient's ability and to challenge him to perform MR ADLs from a standing position utilizing a walker and not utilizing wheelchair and will make a decision as we get closer to discharge. Restrictions/ Precautions: Falls, neuro deficits WB status: FWB Functional Hx: ADLs: Independent Cognition: Independent Mobility: No AD Barriers to Discharge: Decreased mobility and ability to perform self care, balance deficits, weakness Estimated Length of Stay: 1421 days Discharge Destination: Home with family
[2021-09-24] MEDS: LEVOTHYROXINE 150 MCG TAB PO SCH (06:53)
[2021-09-24] MEDS: cloNIDine 0.1 MG TAB PO SCH ×3 (06:53→21:21)
[2021-09-24 07:19] LABS: Hematocrit 40.3 % (35.5-45.6); Mean Corpuscular HGB Conc 35 % (32-34); Mean Corpuscular Volume 99 fl (84-94); Platelet Count 184 K/mm3 (140-440); Red Blood Count 4.09 M/mm3 (3.65-5.03); Red Cell Distribution Width 14.3 % (13.2-15.2)
[2021-09-24 07:36] LABS: Calcium 8.9 mg/dL (8.4-10.2)
[2021-09-24] MEDS: INSULIN REGULAR, HUMAN 100 UNITS/1 ML SUB-Q SCH ×7 (09:14→21:22)
[2021-09-24] MEDS: INSULIN NPH, HUMAN 100 UNIT/1 ML SUB-Q SCH ×2 (09:14→17:11)
[2021-09-24] MEDS: DOCUSATE SODIUM 100 MG CAP PO SCH ×2 (12:07→21:21)
[2021-09-24] MEDS: GABAPENTIN 300 MG CAP PO SCH ×2 (12:07→21:20)
[2021-09-24] MEDS: LISINOPRIL 40 MG TAB PO SCH (12:07)
[2021-09-24] MEDS: CLOPIDOGREL 75 MG TAB PO SCH (12:07)
[2021-09-24] MEDS: carvediloL 12.5 MG TAB PO SCH ×2 (12:07→21:20)
[2021-09-24] MEDS: ASPIRIN EC 81 MG TAB PO SCH (12:07)
[2021-09-24] MEDS: TAMSULOSIN 0.4 MG CAP PO SCH (12:08)
[2021-09-24] MEDS: SPIRONOLACTONE 25 MG TAB PO SCH (12:08)
[2021-09-24] MEDS ORDERED: PROCHLORPERAZINE MALEATE 10 MG TAB PO PRN (19:50)
[2021-09-25] MEDS: cloNIDine 0.1 MG TAB PO SCH ×3 (05:28→22:01)
[2021-09-25] MEDS: LEVOTHYROXINE 150 MCG TAB PO SCH (05:28)
[2021-09-25] MEDS: INSULIN REGULAR, HUMAN 100 UNITS/1 ML SUB-Q SCH ×5 (10:10→22:00)
[2021-09-25] MEDS: ASPIRIN EC 81 MG TAB PO SCH (10:11)
[2021-09-25] MEDS: CLOPIDOGREL 75 MG TAB PO SCH (10:11)
[2021-09-25] MEDS: TAMSULOSIN 0.4 MG CAP PO SCH (10:11)
[2021-09-25] MEDS: SPIRONOLACTONE 25 MG TAB PO SCH (10:11)
[2021-09-25] MEDS: carvediloL 12.5 MG TAB PO SCH ×2 (10:11→22:00)
[2021-09-25] MEDS: LISINOPRIL 40 MG TAB PO SCH (10:11)
[2021-09-25] MEDS: DOCUSATE SODIUM 100 MG CAP PO SCH ×2 (10:11→22:01)
[2021-09-25] MEDS: GABAPENTIN 300 MG CAP PO SCH ×2 (10:11→22:02)
[2021-09-25] MEDS: INSULIN NPH, HUMAN 100 UNIT/1 ML SUB-Q SCH ×2 (10:11→18:23)
[2021-09-25] MEDS: POLYETHYLENE GLYCOL 3350 17 GM POWDER PO PRN (22:07)
[2021-09-26] MEDS: LEVOTHYROXINE 150 MCG TAB PO SCH (06:33)
[2021-09-26] MEDS: cloNIDine 0.1 MG TAB PO SCH (06:40)
[2021-09-26] MEDS: INSULIN REGULAR, HUMAN 100 UNITS/1 ML SUB-Q SCH ×9 (07:04→21:46)
[2021-09-26] MEDS: INSULIN NPH, HUMAN 100 UNIT/1 ML SUB-Q SCH ×2 (08:18→17:35)
--- NOTE | 2021-09-26 09:33 | Progress Note ---
Subjective Date of service: 09/26/21 Principal diagnosis: CVA Interval history: 71-year-old male who recently had a fairly uneventful annual physical exam and later woke up at home unable to walk and feeling dizzy. Patient stated that he considered this to likely be a sinus infection and stayed in bed for a couple of days, however with no relief from his symptoms he opted to seek medical atte ntion at a local ER where he was diagnosed with a CVA. CT head showed hypoattenuation in the left cerebellum, follow-up MRI showed an acute/subacute infarct in the left cerebellar hemisphere with a tiny hemorrhage. CTA head and neck showed diminished flow within left cerebellar branches, 60% stenosis involving the mid cervical left ICA, involving left cerebellar infarct. Patient was seen by neurology who recommended aspirin and Plavix for 90 days followed by aspirin only regimen. However upon speaking with the patient this morning it seems that he has been taking Plavix for quite some time due to cardiac and peripheral stent placement. Will look to have patient follow-up with cardiology after discharge so that they can discuss further with the patient and or neurology preference of continuing aspirin 81 mg or Plavix. After the patient was medically stabilized they were transferred for further rehabilitation. All available medical records have been reviewed. Plan of care was discussed with patient. Interval History: Patient is participating in therapy and making reasonable progress. Taking rest breaks as needed. +BM. Denies pain, palpitations, dyspnea, cough, or joint p ain. CVA: Neurologically stable, patient continues to have balance deficits, but states vertigo and dizziness has improved over the last couple of days. Continue to monitor for shoulder-hand syndrome, post stroke depression, secondary CVA or recrudescence. Continue secondary stroke prevention and stroke education. Epistaxis: Resumed aspirin and utilize SCDs for DVT prophylaxis. Monitor for any further signs of bleeding. Patient should be able to tolerate aspirin/Plavix combination with Lovenox being removed. Hypertension: Blood pressure remains greater than 150 most of the time and is variable which is not helped by medications being held. After discussing with the patient, will discontinue Coreg and spironolactone. Increasing clonidine dose to try and control blood pressure a little better. Continue to monitor and adjust medications as needed. Depending on patient's response to medications, may need to monitor him for a little bit longer prior to discharge BPH: Continue Flomax and monitor for improvement Diabetes: Patient had diabetes starting about 20 years ago which sounds consistent with type 2 diabetes and he was eventually transitioned to insulin. At that point the patient says he was converted to type 1 diabetes. 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 At any rate, it seems that the patient is type 2 diabetes with a decrease in function of his pancreas. Spoke with him and due to his decreased oral intake we will slowly elevate his insulin based on his glucose numbers. Once he returns home to his normal diet he may resume his normal doses of medications. Would recommend that he follow-up with an pharmacy grad intern for clarification. Glucose levels are improving with higher dose of insulin. Monitor and adjust as needed Vertigo: This is improved slightly since the patient's admission. Improving, meclizine available as needed Acute kidney injury: Labs pending for today but renal function appeared stable/improved on Sunday Persistent hiccups: Recurrence over the weekend with patient requesting relief after not being able to stop for the better part of the day. Made as needed Thorazine available Constipation: Monitor bowel movement for regularity and adjust medications as needed. CAD: Continue antiplatelets, patient denies any signs of chest pain. Recommend patient follow-up with campus recruiter and neurologist for consideration of continuing either Plavix or aspirin as patient was on Plavix prior to the stroke. ADL mobility dysfunction: Continue therapy in order to improve patient's ability to ambulate and improve his independence. All records, vitals, labs and medications were reviewed. No other issues per patient, nursing or therapy. Objective - Exam Narrative Exam: MUSCULOSKELETAL SPECIALTY EXAM CONSTITUTIONAL: Well developed, well nourished, appropriately groomed, obese. RIGHT hand dominant. RESPIRATORY: Clear to auscultation bilaterally, no increased work of breathing CARDIOVASCULAR: Regular Rate/ Rhythm, no swelling, edema or tenderness in BUE or BLE. All extremities warm. GI: + bowel sounds, soft, NTTP, nondistended. No rebound tenderness INTEGUMENTARY: Normal, no lesion, rash, masses or bruising noted in extremities. MUSCULOSKELETAL: BUE and BLE normal without defect, crepitus, subluxation, effusion, arthritic changes or TTP. R 5 /5 L 4+ /5 ROM within normal limits Tone within normal limits NEURO: Sensation intact in all extremities without extinction. No tremor noted in 4 extremities. Naming and repetition intact. Follows 2 step commands. Aphasia not appreciated Dysarthria not appreciated Dysphagia not appreciated Neglect not appreciated POSTURE and GAIT: Sitting posture good. Balance and gait fair with ambulation utilizing a rolling walker. PSYCH: Alert, oriented x3, affect appears euthymic. Insight appears intact. - Constitutional Vitals: Vital Signs - 12hr 09/26/21 06:40 Pulse Rate 57 L Blood Pressure 172/61 - Allied health notes Allied health notes reviewed: nursing, PT, OT FIMS assessment as documented by PT/OT/ST: Locomotion- walk/wheelchair Ambulation Distance 5 - Labs CBC & Chem 7: 09/24/21 06:53 09/24/21 06:53 Labs: Laboratory Results - last 72 hr 09/23/21 09/23/21 09/23/21 12:30 16:42 20:12 WBC RBC Hgb Hct MCV MCH MCHC RDW Plt Count Sodium Potassium Chloride Carbon Dioxide Anion Gap BUN Creatinine Estimated GFR BUN/Creatinine Ratio Glucose POC Glucose 178 H 139 H 239 H Calcium 09/24/21 09/24/21 09/24/21 06:53 06:53 08:00 WBC 9.3 RBC 4.09 Hgb 14.0 Hct 40.3 MCV 99 H MCH 34 H MCHC 35 H RDW 14.3 Plt Count 184 Sodium 133 L Potassium 4.4 Chloride 96.4 L Carbon Dioxide 27 Anion Gap 14 BUN 20 Creatinine 1.3 Estimated GFR 55 BUN/Creatinine Ratio 15 Glucose 206 H POC Glucose 185 H Calcium 8.9 09/24/21 09/24/21 09/24/21 11:20 15:50 20:26 WBC RBC Hgb Hct MCV MCH MCHC RDW Plt Count Sodium Potassium Chloride Carbon Dioxide Anion Gap BUN Creatinine Estimated GFR BUN/Creatinine Ratio Glucose POC Glucose 229 H 211 H 284 H Calcium 09/25/21 09/25/21 09/25/21 07:25 11:44 15:46 WBC RBC Hgb Hct MCV MCH MCHC RDW Plt Count Sodium Potassium Chloride Carbon Dioxide Anion Gap BUN Creatinine Estimated GFR BUN/Creatinine Ratio Glucose POC Glucose 174 H 268 H 222 H Calcium 09/25/21 09/26/21 20:01 07:48 WBC RBC Hgb Hct MCV MCH MCHC RDW Plt Count Sodium Potassium Chloride Carbon Dioxide Anion Gap BUN Creatinine Estimated GFR BUN/Creatinine Ratio Glucose POC Glucose 257 H 163 H Calcium Assessment and Plan CVA: Continue Secondary Stroke Prevention (Antithrombotic, Statin (Goal LDL-C <70), BP control (Goal <130/80), GLU control (Goal A1c <7), and lifestyle modification). Monitor for recurrent stroke or post-stroke recrudescence. Continue neuromotor therapy as above. Family training when available. Monitor for post stroke depression, cognitive deficits, seizure, dysphagia, aphasia, shoulder hand syndrome, sensory deficits, spasticity, bowel/bladder deficits, sleep disturbance, vision deficits and DVT. Prognosis for recovery and Secondary Stroke Prevention discussed. Follow up with Neurology. No driving until cleared by Neurologist. Patient will need to discuss with campus recruiter and neurologist preference between the two of continuing on just aspirin versus continuing Plavix. Patient previously taking Plavix per cardiology. Hypertension: Continue medications and adjust for normotension. Goal blood pressure less than 130/80 while avoiding hypotension. Blood pressure values have been variable since admission. Based on variable renal function and bradycardia, will discontinue spironolactone and Coreg. Blood pressure has been elevated greater than 150 most of the time and due to this will increase clonidine. Monitor for effect and patient's tolerance of the increase, may need to make further adjustments prior to discharge Diabetes: Patient taking Novolin in 40 units twice daily and Novolin R 40 units twice daily at home. Question as to whether the patient has type 2 or type 1.5 diabetes. At any rate we have increased his basal insulin and are monitoring need for sliding scale insulin and have also added a flat rate of Novolin R in addition to the sliding scale to better control his glucose. We will continue to monitor and adjust as needed in order to hopefully obtain normoglycemia. Vertigo: Symptomatic treatment along with vestibular rehab to hopefully improve patient's symptoms from the CVA. Monitor patient for improvement as this does place him in a higher fall risk category. Seems to be improving. Acute kidney injury: No mention of chronic kidney disease at outside hospital notes are from the patient. Renal function was deteriorating slowly at outside hospital prior to transfer. Variable values on renal function, improves with IV fluids and then worsens over the next couple of days until IV fluids were given again. Have encouraged patient to improve p.o. intake BPH: Continue Flomax and monitor for improvement Persistent hiccups: Treated at outside hospital with Thorazine, continue treatment here for a couple of days with marked improvement and have since discontinued Thorazine. Will monitor for any return. Constipation: Medications ordered for stool softener as well as suppositories. Monitor bowel movements and adjust medications as needed for regularity. CAD: Continue to monitor for any signs or symptoms of chest pain or cardiac abnormalities. Will consider placing the patient on telemetry monitoring if warranted. Rest breaks as needed during therapy with the immediate notification of patient experiences any chest pain. Continue antiplatelet therapy and follow -up with cardiology so discussion can be had as to plan going forward to continue antiplatelets. Hypothyroidism: Continue levothyroxine and follow-up as outpatient with PCP. Prior diverticulitis with colon resection: Continue to monitor patient for any signs symptoms of recurrent diverticulitis or issues related to bowel function. ADL dysfunction: OT will work on improving ability to perform ADLs (including assistive devices) to increase independence and decrease caregiver burden and improve functional transfers and mobility training. Difficulty walking: PT will work on gait training and proper use of assistive devices and advance as appropriate to use of stairs and outside ambulation on uneven surfaces. Unsteadiness on feet: PT will work on improving static and dynamic sitting and standing balance as well as proper use of assistive devices to decrease risk of falls. Abnormality of gait: PT will work to improve safety and efficiency of gait through neuromotor training and gait training along with instruction on proper use of assistive devices. Muscle weakness: PT & OT will work on strengthening exercises to improve functional strength including mixture of closed and open kinetic chain exercises. Debility: PT & OT will work on improving overall functional status to improve participation with ADLs, mobility and social involvement. Fatigue: PT & OT will work on improving endurance through aerobic exercises and therapeutic activity while monitoring patients tolerance for activity and vital signs as needed. DVT ppx: Lovenox Pain: Continue physical modalities in therapy and pain medications as needed to achieve functional pain control. Sleep: Monitor and address as needed. Bowel: Monitor and address as needed. Appetite: Monitor and address as needed. Discharge planning: Pending therapy progress and care plan meeting. Will continue discussion with therapy team, SW, patient and family. Pending patient's continued progress, will look to discharge him later next week or possibly early the week after. Still undetermined as of now if the patient will be able to go home with only a rolling walker, have instructed therapy to monitor the patient's ability and to challenge him to perform MR ADLs from a standing position utilizing a walker and not utilizing wheelchair and will make a decision as we get closer to discharge. Restrictions/ Precautions: Falls, neuro deficits WB status: FWB Functional Hx: ADLs: Independent Cognition: Independent Mobility: No AD Barriers to Discharge: Decreased mobility and ability to perform self care, balance deficits, weakness Estimated Length of Stay: 1421 days Discharge Destination: Home with family
[2021-09-26] MEDS: ASPIRIN EC 81 MG TAB PO SCH (12:31)
[2021-09-26] MEDS: LISINOPRIL 40 MG TAB PO SCH (12:31)
[2021-09-26] MEDS: DOCUSATE SODIUM 100 MG CAP PO SCH ×2 (12:31→21:45)
[2021-09-26] MEDS: CLOPIDOGREL 75 MG TAB PO SCH (12:31)
[2021-09-26] MEDS: TAMSULOSIN 0.4 MG CAP PO SCH (12:31)
[2021-09-26] MEDS: GABAPENTIN 300 MG CAP PO SCH ×2 (12:32→21:45)
[2021-09-26] MEDS: cloNIDine 0.2 MG TAB PO SCH ×2 (13:49→21:44)
[2021-09-27] MEDS: cloNIDine 0.2 MG TAB PO SCH ×3 (06:47→22:04)
[2021-09-27] MEDS: LEVOTHYROXINE 150 MCG TAB PO SCH (06:48)
[2021-09-27] MEDS: INSULIN REGULAR, HUMAN 100 UNITS/1 ML SUB-Q SCH ×7 (08:00→22:05)
[2021-09-27] MEDS: INSULIN NPH, HUMAN 100 UNIT/1 ML SUB-Q SCH ×2 (08:57→18:00)
[2021-09-27] MEDS ORDERED: LACTULOSE 20 GM/30 ML ORAL LIQD PO NR (11:00)
[2021-09-27] MEDS: GABAPENTIN 300 MG CAP PO SCH ×2 (11:42→22:05)
[2021-09-27] MEDS: DOCUSATE SODIUM 100 MG CAP PO SCH ×2 (11:42→22:04)
[2021-09-27] MEDS: TAMSULOSIN 0.4 MG CAP PO SCH (11:42)
[2021-09-27] MEDS: CLOPIDOGREL 75 MG TAB PO SCH (11:43)
[2021-09-27] MEDS: ASPIRIN EC 81 MG TAB PO SCH (11:43)
[2021-09-27] MEDS: LISINOPRIL 40 MG TAB PO SCH (11:44)
--- NOTE | 2021-09-27 12:24 | Progress Note ---
Subjective Date of service: 09/27/21 Principal diagnosis: CVA Interval history: 71-year-old male who recently had a fairly uneventful annual physical exam and later woke up at home unable to walk and feeling dizzy. Patient stated that he considered this to likely be a sinus infection and stayed in bed for a couple of days, however with no relief from his symptoms he opted to seek medical atte ntion at a local ER where he was diagnosed with a CVA. CT head showed hypoattenuation in the left cerebellum, follow-up MRI showed an acute/subacute infarct in the left cerebellar hemisphere with a tiny hemorrhage. CTA head and neck showed diminished flow within left cerebellar branches, 60% stenosis involving the mid cervical left ICA, involving left cerebellar infarct. Patient was seen by neurology who recommended aspirin and Plavix for 90 days followed by aspirin only regimen. However upon speaking with the patient this morning it seems that he has been taking Plavix for quite some time due to cardiac and peripheral stent placement. Will look to have patient follow-up with cardiology after discharge so that they can discuss further with the patient and or neurology preference of continuing aspirin 81 mg or Plavix. After the patient was medically stabilized they were transferred for further rehabilitation. All available medical records have been reviewed. Plan of care was discussed with patient. Interval History: Patient is participating in therapy and making reasonable progress. Taking rest breaks as needed. -BM. Denies pain, palpitations, dyspnea, cough, N/V, or jessi int pain. CVA: Neurologically stable, patient continues to have balance deficits, but states vertigo and dizziness has improved over the last couple of days. Continue to monitor for shoulder-hand syndrome, post stroke depression, secondary CVA or recrudescence. Continue secondary stroke prevention and stroke education. Epistaxis: Resumed aspirin and utilize SCDs for DVT prophylaxis. Monitor for any further signs of bleeding. Tolerating aspirin/Plavix. Hypertension: Blood pressure remains greater than 150 most of the time and is variable which is not helped by medications being held. After discussing with the patient, will discontinue Coreg and spironolactone. Increasing clonidine dose to try and control blood pressure a little better. Continue to monitor and adjust medications as needed. Depending on patient's response to medications, may need to monitor him for a little bit longer prior to discharge. Unfortunately medications were held last night and I am still attempting to figure out if his blood pressure will tolerate the increased dose of clonidine. BPH: Continue Flomax and monitor for improvement, patient states much improved Diabetes: Patient had diabetes starting about 20 years ago which sounds consistent with type 2 diabetes and he was eventually transitioned to insulin. At that point the patient says he was converted to type 1 diabetes. 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 At any rate, it seems that the patient is type 2 diabetes with a decrease in function of his pancreas. Spoke with him and due to his decreased oral intake we will slowly elevate his insulin based on his glucose numbers. Once he returns home to his normal diet he may resume his normal doses of medications. Would recommend that he follow-up with an patient assessment coordinator for clarification. Glucose levels are improving with higher dose of insulin. Monitor and adjust as needed Vertigo: This is improved slightly since the patient's admission. Improving, meclizine available as needed Acute kidney injury: Labs pending for today but renal function appeared stable/improved on Sunday Persistent hiccups: Recurrence over the weekend with patient requesting relief after not being able to stop for the better part of the day. Made as needed Thorazine available, will not look to discharge patient on Constipation: Monitor bowel movement for regularity and adjust medications as needed. One-time dose of lactulose ordered for this afternoon CAD: Continue antiplatelets, patient denies any signs of chest pain. Recommend patient follow-up with staying machine operator and neurologist for consideration of continuing either Plavix or aspirin as patient was on Plavix prior to the stroke. ADL mobility dysfunction: Continue therapy in order to improve patient's ability to ambulate and improve his independence. All records, vitals, labs and medications were reviewed. No other issues per patient, nursing or therapy. Patient discussed during team conference today and he is making fairly good progress with therapy. Balance still remains an issue for him and he will absolutely need a rolling walker at discharge in order to be safe while performing MR ADLs about the house. Patient will also need a shower chair and a bedside commode which have all been ordered. Patient is feeling better without any current nausea or vomiting since making changes yesterday with his medications. Unfortunately antihypertensive was held last night which is affecting my ability to titrate the medication to control his blood pressure and we will attempt to see what changes need to be made and if we can send him home tomorrow on his current doses or if these doses need to be modified somewhat. Have requested that nursing not hold medications unless parameters are reached. Will discharge home over the next several days pending patient's response to medication changes. In total, 36 minutes was invested in patient care today including greater than 50% of that time spent counseling and coordinating care with the therapist, patient and nursing staff as noted above. Objective - Exam Narrative Exam: MUSCULOSKELETAL SPECIALTY EXAM CONSTITUTIONAL: Well developed, well nourished, appropriately groomed, obese. RIGHT hand dominant. RESPIRATORY: Clear to auscultation bilaterally, no increased work of breathing CARDIOVASCULAR: Regular Rate/ Rhythm, no swelling, edema or tenderness in BUE or BLE. All extremities warm. GI: + bowel sounds, soft, NTTP, nondistended. No rebound tenderness INTEGUMENTARY: Normal, no lesion, rash, masses or bruising noted in extremities. MUSCULOSKELETAL: BUE and BLE normal without defect, crepitus, subluxation, effusion, arthritic changes or TTP. R 5 /5 L 4+ /5 ROM within normal limits Tone within normal limits NEURO: Sensation intact in all extremities without extinction. No tremor noted in 4 extremities. Naming and repetition intact. Follows 2 step commands. Aphasia not appreciated Dysarthria not appreciated Dysphagia not appreciated Neglect not appreciated POSTURE and GAIT: Sitting posture good. Balance and gait fair with ambulation utilizing a rolling walker, some loss of balance but able to recover with walk, has not tolerated use of quad cane. PSYCH: Alert, oriented x3, affect appears euthymic. Insight appears intact. - Constitutional Vitals: Vital Signs - 12hr 09/27/21 08:46 Temperature 97.5 F L Pulse Rate 59 L Respiratory 18 Rate Blood Pressure 129/64 O2 Sat by Pulse 97 Oximetry - Allied health notes Allied health notes reviewed: nursing, PT, OT FIMS assessment as documented by PT/OT/ST: Locomotion- walk/wheelchair Ambulation Distance 5 - Labs CBC & Chem 7: 09/24/21 06:53 09/24/21 06:53 Labs: Laboratory Results - last 72 hr 09/24/21 09/24/21 09/25/21 15:50 20:26 07:25 POC Glucose 211 H 284 H 174 H 09/25/21 09/25/21 09/25/21 11:44 15:46 20:01 POC Glucose 268 H 222 H 257 H 09/26/21 09/26/21 09/26/21 07:48 13:31 16:30 POC Glucose 163 H 171 H 180 H 09/26/21 09/27/21 09/27/21 21:52 08:47 11:34 POC Glucose 135 H 142 H 219 H Assessment and Plan CVA: Continue Secondary Stroke Prevention (Antithrombotic, Statin (Goal LDL-C <70), BP control (Goal <130/80), GLU control (Goal A1c <7), and lifestyle modification). Monitor for recurrent stroke or post-stroke recrudescence. Continue neuromotor therapy as above. Family training when available. Monitor for post stroke depression, cognitive deficits, seizure, dysphagia, aphasia, shoulder hand syndrome, sensory deficits, spasticity, bowel/bladder deficits, sleep disturbance, vision deficits and DVT. Prognosis for recovery and Secondary Stroke Prevention discussed. Follow up with Neurology. No driving until cleared by Neurologist. Patient will need to discuss with staying machine operator and neurologist preference between the two of continuing on just aspirin versus continuing Plavix. Patient previously taking Plavix per cardiology. Hypertension: Continue medications and adjust for normotension. Goal blood pressure less than 130/80 while avoiding hypotension. Blood pressure values have been variable since admission. Based on variable renal function and bradycardia, will discontinue spironolactone and Coreg. Blood pressure has been elevated greater than 150 most of the time and due to this will increase clonidine. Monitor for effect and patient's tolerance of the increase, may need to make further adjustments prior to discharge Diabetes: Patient taking Novolin in 40 units twice daily and Novolin R 40 units twice daily at home. Question as to whether the patient has type 2 or type 1.5 diabetes. At any rate we have increased his basal insulin and are monitoring need for sliding scale insulin and have also added a flat rate of Novolin R in addition to the sliding scale to better control his glucose. We will continue to monitor and adjust as needed in order to hopefully obtain normoglycemia. Vertigo: Symptomatic treatment along with vestibular rehab to hopefully improve patient's symptoms from the CVA. Monitor patient for improvement as this does place him in a higher fall risk category. Seems to be improving. Acute kidney injury: No mention of chronic kidney disease at outside hospital notes are from the patient. Renal function was deteriorating slowly at outside hospital prior to transfer. Variable values on renal function, improves with IV fluids and then worsens over the next couple of days until IV fluids were given again. Have encouraged patient to improve p.o. intake BPH: Continue Flomax and monitor for improvement Persistent hiccups: Treated at outside hospital with Thorazine, continue treatment here for a couple of days with marked improvement and have since discontinued Thorazine. Will monitor for any return. Constipation: Medications ordered for stool softener as well as suppositories. Monitor bowel movements and adjust medications as needed for regularity. CAD: Continue to monitor for any signs or symptoms of chest pain or cardiac abnormalities. Will consider placing the patient on telemetry monitoring if warranted. Rest breaks as needed during therapy with the immediate notification of patient experiences any chest pain. Continue antiplatelet therapy and follow-up with cardiology so discussion can be had as to plan going forward to continue antiplatelets. Hypothyroidism: Continue levothyroxine and follow-up as outpatient with PCP. Prior diverticulitis with colon resection: Continue to monitor patient for any signs symptoms of recurrent diverticulitis or issues related to bowel function. ADL dysfunction: OT will work on improving ability to perform ADLs (including assistive devices) to increase independence and decrease caregiver burden and improve functional transfers and mobility training. Difficulty walking: PT will work on gait training and proper use of assistive devices and advance as appropriate to use of stairs and outside ambulation on uneven surfaces. Unsteadiness on feet: PT will work on improving static and dynamic sitting and standing balance as well as proper use of assistive devices to decrease risk of falls. Abnormality of gait: PT will work to improve safety and efficiency of gait through neuromotor training and gait training along with instruction on proper use of assistive devices. Muscle weakness: PT & OT will work on strengthening exercises to improve functional strength including mixture of closed and open kinetic chain exercises. Debility: PT & OT will work on improving overall functional status to improve participation with ADLs, mobility and social involvement. Fatigue: PT & OT will work on improving endurance through aerobic exercises and therapeutic activity while monitoring patients tolerance for activity and vital signs as needed. DVT ppx: Lovenox Pain: Continue physical modalities in therapy and pain medications as needed to achieve functional pain control. Sleep: Monitor and address as needed. Bowel: Monitor and address as needed. Appetite: Monitor and address as needed. Discharge planning: Pending therapy progress and care plan meeting. Will continue discussion with therapy team, SW, patient and family. Pending patient's continued progress, will look to discharge him this week. Patient will be discharged with rolling walker, shower chair, bedside commode and home health. Family training in the a.m. Restrictions/ Precautions: Falls, neuro deficits WB status: FWB Functional Hx: ADLs: Independent Cognition: Independent Mobility: No AD Barriers to Discharge: Decreased mobility and ability to perform self care, balance deficits, weakness Estimated Length of Stay: 1421 days Discharge Destination: Home with family
[2021-09-28] MEDS: cloNIDine 0.2 MG TAB PO SCH (06:31)
[2021-09-28] MEDS: LEVOTHYROXINE 150 MCG TAB PO SCH (06:31)
[2021-09-28] MEDS: INSULIN REGULAR, HUMAN 100 UNITS/1 ML SUB-Q SCH ×4 (08:42→12:19)
[2021-09-28] MEDS: INSULIN NPH, HUMAN 100 UNIT/1 ML SUB-Q SCH (08:42)
[2021-09-28] MEDS: LISINOPRIL 40 MG TAB PO SCH (12:12)
[2021-09-28] MEDS: CLOPIDOGREL 75 MG TAB PO SCH (12:13)
[2021-09-28] MEDS: DOCUSATE SODIUM 100 MG CAP PO SCH (12:13)
[2021-09-28] MEDS: GABAPENTIN 300 MG CAP PO SCH (12:13)
[2021-09-28] MEDS: TAMSULOSIN 0.4 MG CAP PO SCH (12:13)
[2021-09-28] MEDS: ASPIRIN EC 81 MG TAB PO SCH (12:13)
[2021-09-28 12:19] VITALS: BP 130/67
--- NOTE | 2021-09-28 12:56 | Discharge Summary ---
Providers - Providers Date of Admission: 09/16/21 17:24 Date of discharge: 09/28/21 Attending physician: QUYNH IBARRA III, MD 09/16/21 16:04 Occupational Therapy Evaluate and Treat [CONS] Routine Comment: Reason For Exam: ADL dysfunction Physical Therapy Evaluation and Treat [CONS] Routine Comment: Reason For Exam: Mobility Dysfunction 09/16/21 16:13 Consult to Dietitian/Nutrition [CONS] Routine Physician Instructions: Reason For Exam: Reason for Consult: Diet education 09/16/21 16:21 Consult to Case Management [CONS] Routine Services Needed at Discharge: Home Health Services Notified:: nurse case managementrecruiting manager Therapy Evaluation and Treat [CONS] Routine Reason For Exam: CVA, Assess/Treat Speech/Cog/Swallow Primary care physician: BILLIE LEON Hospitalization Reason for admission: CVA Condition: Good Hospital course: 71-year-old male who recently had a fairly uneventful annual physical exam and later woke up at home unable to walk and feeling dizzy. Patient stated that he considered this to likely be a sinus infection and stayed in bed for a couple of days, however with no relief from his symptoms he opted to seek medical attention at a local ER where he was diagnosed with a CVA. CT head showed hypoattenuation in the left cerebellum, follow-up MRI showed an acute/subacute infarct in the left cerebellar hemisphere with a tiny hemorrhage. CTA head and neck showed diminished flow within left cerebellar branches, 60% stenosis involving the mid cervical left ICA, involving left cerebellar infarct. Patient was seen by neurology who recommended aspirin and Plavix for 90 days followed by aspirin only regimen. However upon speaking with the patient this morning it seems that he has been taking Plavix for quite some time due to cardiac and peripheral stent placement. Will look to have patient follow-up with cardiology after discharge so that they can discuss further with the patient and or neurology preference of continuing aspirin 81 mg or Plavix. After the patient was medically stabilized they were transferred for further rehabilitation. All available medical records have been reviewed. Plan of care was discussed with patient. CVA: Continue Secondary Stroke Prevention (Antithrombotic, Statin (Goal LDL-C <70), BP control (Goal <130/80), GLU control (Goal A1c <7), and lifestyle modification). Monitor for recurrent stroke or post-stroke recrudescence. Continue neuromotor therapy as above. Family training completed. Monitor for post stroke depression, cognitive deficits, seizure, dysphagia, aphasia, shoulder hand syndrome, sensory deficits, spasticity, bowel/bladder deficits, sleep disturbance, vision deficits and DVT. Prognosis for recovery and Secondary Stroke Prevention discussed. Follow up with Neurology. No driving until cleared by Neurologist. Patient will need to discuss with nut process helper and neurologist preference between the two of continuing on just aspirin versus continuing Plavix. Patient previously taking Plavix per cardiology. Neurology recommending Plavix and aspirin for 90 days with aspirin only afterwards. Epistaxis: Resumed aspirin and utilize SCDs for DVT prophylaxis. Monitor for any further signs of bleeding. Tolerating aspirin/Plavix. Hypertension: Blood pressure was variable on previous regimen. Performed a stepwise wean of spironolactone due to consisted electrolyte abnormalities and of Coreg due to consistent bradycardia. After discussing with the patient, we discontinued Coreg and spironolactone and increased clonidine dose to try and control blood pressure a little better. Patient is tolerating the change in medications, electrolytes have been better controlled and bradycardia has i mproved slightly. Blood pressure stable on current dosing without hypotension. Recommend to the patient that he check blood pressure daily and take a blood pressure log to his primary care physician for follow-up and possible adjustment of medications going forward. BPH: Continue Flomax and monitor for improvement, patient states much improved Diabetes: Patient had diabetes starting about 20 years ago which sounds consistent with type 2 diabetes and he was eventually transitioned to insulin. At that point the patient says he was converted to type 1 diabetes. 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 At any rate, it seems that the patient is type 2 diabetes with a decrease in function of his pancreas. Spoke with him and due to his decreased oral intake we will slowly elevate his insulin based on his glucose numbers. Once he returns home to his normal diet he may resume his normal doses of medications. Would recommend that he follow-up with an cnc mill operator for clarification. Glucose levels are improving with higher dose of insulin. Monitor and adjust as needed. Vertigo: Cerebellar CVA. This is improved since the patient's admission. Improving, meclizine available as needed Acute kidney injury: Improved since adjusting/discontinuing spironolactone. Persistent hiccups: Several episodes during the patient's stay which improved with short-term Thorazine. Hopefully this has completely resolved and will not be discharging the patient on Thorazine Constipation: Monitor bowel movement for regularity and adjust medications as needed. CAD: Continue antiplatelets, patient denies any signs of chest pain. Recommend patient follow-up with nut process helper and neurologist for consideration of continuing either Plavix or aspirin as patient was on Plavix prior to the stroke. ADL and mobility dysfunction: Patient has done well with therapy and is mostly modified independent for ambulation and ADLs. Still having slight leaning but no overt loss of balance and did require supervision with ambulating utilizing a rolling walker. We have attempted to utilize quad cane however the patient was less steady with this and for safety reasons we are discharging the patient home with a rolling walker. I discussed with the patient that he needs to continue working on ambulation to improve endurance as well as distance of ambulation. Home health has been ordered Disposition: 06 HOME HEALTH CARE SERVICE Final Discharge Diagnosis (Prints w/discharge instructions): CVA, Diabetes, Hypertension, CAD, BPH Time spent for discharge: >32 mins Core Measure Documentation - Palliative Care Palliative Care/ Comfort Measures: Not Applicable - Core Measures Any of the following diagnoses?: stroke - Stroke Discharge Requirements Statin for LDL = or >70 mg/dl on DC: Yes Anticoag for atrial fib/atrial flutter: Not Applicable Antithrombotic for ischemic stroke: Yes Exam - Physical Exam Narrative exam: MUSCULOSKELETAL SPECIALTY EXAM CONSTITUTIONAL: Well developed, well nourished, appropriately groomed, obese. RIGHT hand dominant. RESPIRATORY: Clear to auscultation bilaterally, no increased work of breathing CARDIOVASCULAR: Regular Rate/ Rhythm, no swelling, edema or tenderness in BUE or BLE. All extremities warm. GI: + bowel sounds, soft, NTTP, nondistended. INTEGUMENTARY: Normal, no lesion, rash, masses or bruising noted in extremities. MUSCULOSKELETAL: BUE and BLE normal without defect, crepitus, subluxation, effusion, arthritic changes or TTP. R 5 /5 L 4+ /5 ROM within normal limits Tone within normal limits NEURO: Sensation intact in all extremities without extinction. No tremor noted in 4 extremities. Naming and repetition intact. Follows 2 step commands. Aphasia not appreciated Dysarthria not appreciated Dysphagia not appreciated Neglect not appreciated POSTURE and GAIT: Sitting posture good. Balance and gait fair with ambulation utilizing a rolling walker PSYCH: Alert, oriented x3, affect appears euthymic. Insight appears intact. - Constitutional Vitals: Temp Pulse Resp BP Pulse Ox 97.7 F 54 L 24 130/67 98 09/28/21 12:18 09/28/21 12:18 09/28/21 12:18 09/28/21 12:18 09/28/21 12:18 Plan Activity: no driving until cleared by PCP, fall precautions Diet: diabetic (Heart healthy diabetic diet) Special Instructions: physical therapy, occupational therapy, home health RN Durable Medical Equipment Needed Upon Discharge: Walker-Rolling, Bedside Commode Care Plan Goals: Patient will need to follow-up with primary care after discharge and did take a log of his blood glucose values as well as his blood pressure values. Patient's blood pressure medications have been altered significantly from his prior regimen. He is currently stable on the current regimen but this may change management director time with dietary/lifestyle changes once home. Patient should return back to his normal insulin regimen and may need to increase this over time depending on dietary and lifestyle changes. Patient will also need to follow-up with a neurologist of his choice in 1 to 2 months. He stated he could more than likely have a conversation with his primary care physician in order to get a trusted recommendation from them. Patient will also need to follow-up with his nut process helper. Previously the nut process helper at the patient on Plavix due to placement of stents. Per the hospital-based neurologist at the outside hospital they are wanting the patient to continue with aspirin after 90 days of aspirin/Plavix combination. I recommend to the patient that he obtain input from his nut process helper to see if this is agreeable with them prior to converting to aspirin only regimen. May be necessary for the patient's future neurologist and current nut process helper to have a discussion prior to the 90-day saturnino. Follow up with: BILLIE LEON MD [Primary Care Provider] - 7 Days Prescriptions: AtorvaSTATin [Lipitor] 40 mg PO QHS #30 tablet Meclizine [Antivert] 25 mg PO BID PRN #15 tablet PRN Reason: Vertigo cloNIDine [Catapres] 0.2 mg PO Q8HR #90 tablet Docusate Sodium [Colace CAP] 100 mg PO BID #30 capsule Tamsulosin [Flomax] 0.4 mg PO QDAY #30 capsule Gabapentin 300 mg PO BID #60 capsule Aspirin EC [Halfprin EC] 81 mg PO QDAY #30 tablet ISOSORBIDE MONOnitrate [Imdur ER] 60 mg PO QDAY #30 tablet Clopidogrel [Plavix] 75 mg PO QDAY #30 tablet Levothyroxine [Synthroid] 150 mcg PO DAILY@0600 #30 tablet lisinopriL [Zestril TAB] 40 mg PO QDAY #30 tablet
== END 2021-09-28 14:00 | disposition home health service (06) | DRG 65 ==
LOC: UNDOADMIN 15:17 → 4A 15:17
PROVIDERS: ADMIT Physical Medicine & Rehabilitation; ATTEND Physical Medicine & Rehabilitation
DX: I63.9 Cerebral infarction, unspecified (principal); N17.9 Acute kidney failure, unspecified; H81.90 Unspecified disorder of vestibular function, unspecified ear; I10 Essential (primary) hypertension; E03.9 Hypothyroidism, unspecified; R53.81 Other malaise; K59.00 Constipation, unspecified; I25.10 Atherosclerotic heart disease of native coronary artery without angina pectoris; R04.0 Epistaxis; N40.0 Benign prostatic hyperplasia without lower urinary tract symptoms; Z83.3 Family history of diabetes mellitus; Z82.49 Family history of ischemic heart disease and other diseases of the circulatory system; R26.9 Unspecified abnormalities of gait and mobility; E11.9 Type 2 diabetes mellitus without complications
CPT/HCPCS: 36415; 80048; 80053; 82962; 85025; 85027; G0378; J2354; Q9967; J1650; J1815; J2405; J7030; Q0161